=== PATIENT | male | born 1985 | race American Indian/Alaskan Native ===

== ENCOUNTER 2019-02-04 13:58 | Inpatient (IN) | payer BC ==
--- NOTE | 2019-02-04 14:15 | Event Note ---
ED Screening Note ED Screening Note: states he drinks approx 2 drinks of liquor per day has not been drinking much water states he had a binge weekend of alcohol states has some muscle cramping/soreness never had kidney problems in the past feels dehydration PMHx HTN states he was not on his medication 4 months states just started back taking it 3 days This initial assessment/diagnostic orders/clinical plan/treatment(s) is/are subject to change based on patients health status, clinical progression and re- assessment by fellow clinical providers in the ED. Further treatment and workup at subsequent clinical providers discretion. Patient/guardian urged not to elope from the ED as their condition may be serious if not clinically assessed and managed. Initial orders include: labs
[2019-02-04 15:22] LABS: Basophils # (Auto) 0.1 K/mm3 (0.0-0.1); Eosinophils # (Auto) 0.3 K/mm3 (0.0-0.4); Eosinophils % (Auto) 4.3 % (0.0-4.3); Hemoglobin 9.9 gm/dl (11.8-15.2); Lymphocytes # (Auto) 1.4 K/mm3 (1.2-5.4); Mean Corpuscular HGB Conc 34 % (32-34); Mean Corpuscular Volume 96 fl (84-94); Monocytes # (Auto) 0.4 K/mm3 (0.0-0.8); Monocytes % (Auto) 7.4 % (0.0-7.3); Platelet Count 306 K/mm3 (140-440); Red Blood Count 3.02 M/mm3 (3.65-5.03); Red Cell Distribution Width 14.8 % (13.2-15.2)
--- NOTE | 2019-02-04 15:31 | Emergency Department Report ---
HPI - General Chief Complaint: Recheck/Abnormal Lab/Rx Time Seen by Provider: 02/04/19 14:10 - HPI HPI: This is a 34-year-old male presents to the emergency department with a complaint of abnormal renal function labs that were found at his primary care office. He was sent in by Dr. Lane after he was found to have a creatinine greater than 8 and a GFR of 8. Patient complains of some fatigue but otherwise he has no other physical complaints. He is making a normal amount of urine. He says that he has been given a referral to follow up with Dr. ramirez. Patient is on a few different lab tests done and he was following up today regarding some blood work he had in the past 2 days. Patient has history of hypertension and admits to medication noncompliance in the past 4 months. He is an occasional tobacco smoker but denies any illicit drug use. He does drink alcohol regularly. ED Past Medical Hx - Past Medical History Previous Medical History?: Yes Hx Hypertension: Yes - Surgical History Past Surgical History?: Yes Additional Surgical History: giovany placed to right arm - Social History Smoking Status: Light Tobacco Smoker Substance Use Type: Alcohol - Medications Home Medications: Home Medications Medication Instructions Recorded Confirmed Last Taken Type Furosemide [Lasix] 20 mg PO DAILY 02/04/19 02/04/19 Unknown History Olmesartan (Nf) [Benicar (Nf)] 20 mg PO DAILY 02/04/19 02/04/19 Unknown History amLODIPine [Norvasc] 5 mg PO DAILY 02/04/19 02/04/19 Unknown History ED Review of Systems ROS: Stated complaint: DR SENT Other details as noted in HPI Comment: All other systems reviewed and negative Constitutional: denies: chills, fever Eyes: denies: eye pain, vision change ENT: denies: ear pain, throat pain Respiratory: denies: cough, shortness of breath Cardiovascular: denies: chest pain, palpitations Gastrointestinal: denies: abdominal pain, vomiting Genitourinary: denies: dysuria, discharge Musculoskeletal: denies: back pain, arthralgia Skin: denies: rash, lesions Neurological: denies: headache, weakness Physical Exam - Physical Exam Vital Signs: Vital Signs 02/04/19 14:13 Temperature 98.1 F Pulse Rate 108 H Respiratory 20 Rate Blood Pressure 164/112 O2 Sat by Pulse 100 Oximetry Physical Exam: GENERAL: The patient is well-developed well-nourished. HENT: Normocephalic. Atraumatic. Patient has moist mucous membranes. EYES: Extraocular motions are intact. NECK: Supple. Trachea is midline. CHEST/LUNGS: Clear to auscultation. There is no respiratory distress noted. HEART/CARDIOVASCULAR: Regular. There is no tachycardia. There is no murmur. ABDOMEN: Abdomen is soft, nontender. Patient has normal bowel sounds. There is no abdominal distention. SKIN: Skin is warm and dry. NEURO: The patient is awake, alert, and oriented. The patient is cooperative. The patient has no focal neurologic deficits. The patient has normal speech. MUSCULOSKELETAL: There is no tenderness or deformity. There is no limitation range of motion. There is no evidence of acute injury. ED Course Vital Signs 02/04/19 14:13 Temperature 98.1 F Pulse Rate 108 H Respiratory 20 Rate Blood Pressure 164/112 O2 Sat by Pulse 100 Oximetry - Consultations Consultation #1: 02/04/19 18:06 I spoke with the hacksaw inspector, Dr. Quiroga, who would like the patient admitted to the hospital for further evaluation and testing. He will consult on the patient. ED Medical Decision Making - Lab Data Result diagrams: 02/04/19 15:04 02/04/19 15:04 - Medical Decision Making This patient was sent in by his primary care physician for some acute renal failure. Otherwise the patient does not have any complaints of any discomfort or decreased urination. The blood work from the primary care office showed a creatinine of about 8.5 and a GFR of 8. The labs today show a creatinine of greater than 9. The rest of the blood work is mostly unremarkable. Nephrology has been contacted to consult. The patient will be admitted to the hospital for further evaluation and treatment and was accepted for admission by the hospitalist, Dr. Frank. - Differential Diagnosis secondary to HTN, malignancy, lupus nephritis Critical Care Time: No Critical care attestation.: If time is entered above; I have spent that time in minutes in the direct care of this critically ill patient, excluding procedure time. ED Disposition Clinical Impression: Uncontrolled hypertension Acute renal failure (ARF) Qualifiers: Acute renal failure type: unspecified Qualified Code(s): N17.9 - Acute kidney failure, unspecified Disposition: OP ADMIT IP TO THIS HOSP Is pt being admited?: Yes Condition: Fair Time of Disposition: 16:15
[2019-02-04 15:53] LABS: Albumin 3.8 g/dL (3.9-5); Calcium 9.1 mg/dL (8.4-10.2)
[2019-02-04] MEDS ORDERED: APRESOLINE IV ONE ×2 (16:16→18:46)
[2019-02-04 17:18] LABS: Bilirubin,Urine NEG (Negative); Blood,Urine NEG (Negative); Color,Urine Straw (Yellow); Mucus,Urine FEW /HPF; RBC,Urine < 1.0 /HPF (0.0-6.0); Urobilinogen,Urine < 2.0 mg/dL (<2.0); WBC,Urine < 1.0 /HPF (0.0-6.0)
[2019-02-04] MEDS ORDERED: NORVASC ONE (18:07)
[2019-02-04] MEDS: NORVASC PO SCH (18:12)
[2019-02-04] MEDS ORDERED: APRESOLINE ONE (18:50)
[2019-02-04] MEDS ORDERED: SODIUM CHLORIDE FLUSH SYRINGE 10 ML IV PRN ×2 (19:34→19:40)
[2019-02-04] MEDS ORDERED: TYLENOL PO PRN ×2 (19:34→19:40)
[2019-02-04] MEDS ORDERED: PERCOCET 5/325 PO PRN (19:34)
[2019-02-04] MEDS ORDERED: ZOFRAN IV PRN ×2 (19:34→19:40)
[2019-02-04] MEDS ORDERED: DILAUDID IV PRN (19:34)
[2019-02-04] MEDS ORDERED: APRESOLINE IV PRN (19:36)
[2019-02-04] MEDS ORDERED: REGLAN IV PRN (19:40)
[2019-02-04] MEDS ORDERED: PHENERGAN PR PRN (19:40)
--- NOTE | 2019-02-04 19:55 | History and Physical Report ---
History of Present Illness Date of examination: 02/04/19 Date of admission: 02/04/19 16:20 Chief complaint: Uncontrolled blood pressure Elevated creatinine--- sent by primary care for creatinine of 9.0 History of present illness: 34-year-old -[place] male with history of hypertension diagnosed a few years ago has been noncompliant with blood pressure medication. His primary care physician diagnosed him which elevated creatinine and elevated blood pressure. Sent him to emergency room for evaluation. Apparently his creatinine is about 9. Has been feeling weak for the last 2 weeks. Easily fatigued for the last 2 weeks. Patient was sent by Dr. Lane. Patient was referred to Dr Quiroga-audio narrator. Patient smokes 2-3 cigarettes a day. Alcohol on a regular basis. No fever or chills. Generalized weakness and fatigue for the last 2 weeks. Very noncompliant. Labs were sent along with the patient by the primary care physician. His hemoglobin was 9.4 and hematocrit was 28.1 creatinine is 8.92 Past Medical History Hypertension: Yes Surgical History Kiran placed to right arm secondary to right arm fracture Social History Smoking Status: Light Tobacco Smoker Substance Use Type: Alcohol--On regular basis Family history Htn Medications Home Medications: Home Medications Medication Instructions Recorded Confirmed Last Taken Type Furosemide [Lasix] 20 mg PO DAILY 02/04/19 02/04/19 Unknown History Olmesartan (Nf) [Benicar (Nf)] 20 mg PO DAILY 02/04/19 02/04/19 Unknown History amLODIPine [Norvasc] 5 mg PO DAILY 02/04/19 02/04/19 Unknown History Review of Systems ROS: Stated complaint: DR SENT Other details as noted in HPI Comment: All other systems reviewed and negative--generalized weakness Constitutional: denies: chills, fever Eyes: denies: eye pain, vision change ENT: denies: ear pain, throat pain Respiratory: denies: cough, shortness of breath Cardiovascular: denies: chest pain, palpitations Gastrointestinal: denies: abdominal pain, vomiting Genitourinary: denies: dysuria, discharge Musculoskeletal: denies: back pain, arthralgia Skin: denies: rash, lesions Neurological: denies: headache, weakness Medications and Allergies Allergies Allergy/AdvReac Type Severity Reaction Status Date / Time bee venom protein (honey bee) Allergy Swelling Verified 02/04/19 14:01 Home Medications Medication Instructions Recorded Confirmed Last Taken Type Furosemide [Lasix] 20 mg PO DAILY 02/04/19 02/04/19 Unknown History Olmesartan (Nf) [Benicar (Nf)] 20 mg PO DAILY 02/04/19 02/04/19 Unknown History amLODIPine [Norvasc] 5 mg PO DAILY 02/04/19 02/04/19 Unknown History Active Meds: Active Medications Acetaminophen (Tylenol) 650 mg PO Q4H PRN PRN Reason: Pain MILD(1-3)/Fever >100.5/BRAUN Acetaminophen (Tylenol) 650 mg PO Q4H PRN PRN Reason: Pain MILD(1-3)/Fever >100.5/BRAUN Amlodipine Besylate (Norvasc) 10 mg PO QDAY [facility] Last Admin: 02/04/19 18:12 Dose: 10 mg Documented by: Famotidine (Pepcid) 10 mg PO BID [facility] Heparin Sodium (Porcine) (Heparin) 5,000 unit SUB-Q Q12HR [facility] Hydralazine HCl (Apresoline) 10 mg IV Q3H PRN PRN Reason: Blood Pressure Hydromorphone HCl (Dilaudid) 0.5 mg IV Q3H PRN PRN Reason: Pain , Severe (7-10) Sodium Chloride (Nacl 0.45% 1000 Ml) 1,000 mls @ 50 mls/hr IV DIRECT BONY Labetalol HCl (Normodyne) 300 mg PO Q8H BON[facility] Metoclopramide HCl (Reglan) 10 mg IV Q6H PRN PRN Reason: Nausea And Vomiting Ondansetron HCl (Zofran) 4 mg IV Q8H PRN PRN Reason: Nausea And Vomiting Ondansetron HCl (Zofran) 4 mg IV Q8H PRN PRN Reason: Nausea And Vomiting Oxycodone/Acetaminophen (Percocet 5/325) 1 tab PO Q6H PRN PRN Reason: Pain, Moderate (4-6) Promethazine HCl (Phenergan) 25 mg MI Q6H PRN PRN Reason: N/V IF NPO AND NO IV ACCESS Sodium Chloride (Sodium Chloride Flush Syringe 10 Ml) 10 ml IV BID [facility] Sodium Chloride (Sodium Chloride Flush Syringe 10 Ml) 10 ml IV PRN PRN PRN Reason: LINE FLUSH Sodium Chloride (Sodium Chloride Flush Syringe 10 Ml) 10 ml IV BID BONY Sodium Chloride (Sodium Chloride Flush Syringe 10 Ml) 10 ml IV PRN PRN PRN Reason: LINE FLUSH Exam - Constitutional Vitals: Temp Pulse Resp BP Pulse Ox 98.4 F 109 H 18 166/99 100 02/04/19 19:41 02/04/19 19:41 02/04/19 19:41 02/04/19 19:41 02/04/19 19:41 General appearance: Present: no acute distress, well-nourished - EENT Eyes: Present: PERRL ENT: hearing intact, clear oral mucosa - Neck Neck: Present: supple, normal ROM - Respiratory Respiratory effort: normal Respiratory: bilateral: CTA - Cardiovascular Heart rate: 78 Rhythm: regular Heart Sounds: Present: S1 & S2. Absent: rub, click - Extremities Extremities: no ischemia, pulses intact, pulses symmetrical, No edema Peripheral Pulses: within normal limits - Abdominal General gastrointestinal: Present: soft, non-tender, non-distended, normal bowel sounds Male genitourinary: Present: normal - Rectal Rectal Exam: deferred - Integumentary Integumentary: Present: clear, warm, dry - Musculoskeletal Musculoskeletal: gait normal, strength equal bilaterally - Psychiatric Psychiatric: appropriate mood/affect, intact judgment & insight - Neurologic Neurologic: CNII-XII intact, moves all extremities - Allied Health Allied health notes reviewed: nursing, case management Results - Labs CBC & Chem 7: 02/04/19 15:04 02/04/19 15:04 Labs: Laboratory Last Values WBC 6.0 K/mm3 (4.5-11.0) 02/04/19 15:04 RBC 3.02 M/mm3 (3.65-5.03) L 02/04/19 15:04 Hgb 9.9 gm/dl (11.8-15.2) L 02/04/19 15:04 Hct 29.0 % (35.5-45.6) L 02/04/19 15:04 MCV 96 fl (84-94) H 02/04/19 15:04 MCH 33 pg (28-32) H 02/04/19 15:04 MCHC 34 % (32-34) 02/04/19 15:04 RDW 14.8 % (13.2-15.2) 02/04/19 15:04 Plt Count 306 K/mm3 (140-440) 02/04/19 15:04 Lymph % (Auto) 24.0 % (13.4-35.0) 02/04/19 15:04 [place] % (Auto) 7.4 % (0.0-7.3) H 02/04/19 15:04 Eos % (Auto) 4.3 % (0.0-4.3) 02/04/19 15:04 Baso % (Auto) 1.0 % (0.0-1.8) 02/04/19 15:04 Lymph # 1.4 K/mm3 (1.2-5.4) 02/04/19 15:04 [place] # 0.4 K/mm3 (0.0-0.8) 02/04/19 15:04 Eos # 0.3 K/mm3 (0.0-0.4) 02/04/19 15:04 Baso # 0.1 K/mm3 (0.0-0.1) 02/04/19 15:04 Seg Neutrophils % 63.3 % (40.0-70.0) 02/04/19 15:04 Seg Neutrophils # 3.8 K/mm3 (1.8-7.7) 02/04/19 15:04 Sodium 140 mmol/L (137-145) 02/04/19 15:04 Potassium 4.1 mmol/L (3.6-5.0) 02/04/19 15:04 Chloride 101.6 mmol/L (98-107) 02/04/19 15:04 Carbon Dioxide 23 mmol/L (22-30) 02/04/19 15:04 20 mmol/L 02/04/19 15:04 BUN 74 mg/dL (9-20) H 02/04/19 15:04 9.3 mg/dL (0.8-1.5) H 02/04/19 15:04 Estimated GFR 8 ml/min 02/04/19 15:04 8 % 02/04/19 15:04 Glucose 172 mg/dL (75-100) H 02/04/19 15:04 Calcium 9.1 mg/dL (8.4-10.2) 02/04/19 15:04 0.20 mg/dL (0.1-1.2) 02/04/19 15:04 AST 15 units/L (5-40) 02/04/19 15:04 ALT 19 units/L (7-56) 02/04/19 15:04 40 units/L (35-129) 02/04/19 15:04 100 units/L (55-170) 02/04/19 15:04 7.1 g/dL (6.3-8.2) 02/04/19 15:04 3.8 g/dL (3.9-5) L 02/04/19 15:04 1.2 % 02/04/19 15:04 Straw (Yellow) 02/04/19 16:43 Clear (Clear) 02/04/19 16:43 6.0 (5.0-7.0) 02/04/19 16:43 Ur Specific [place] 1.011 (1.003-1.030) 02/04/19 16:43 100 mg/dl mg/dL (Negative) 02/04/19 16:43 Neg mg/dL (Negative) 02/04/19 16:43 Neg mg/dL (Negative) 02/04/19 16:43 Neg (Negative) 02/04/19 16:43 Neg (Negative) 02/04/19 16:43 Neg (Negative) 02/04/19 16:43 < 2.0 mg/dL (<2.0) 02/04/19 16:43 Ur Leukocyte Esterase Neg (Negative) 02/04/19 16:43 < 1.0 /HPF (0.0-6.0) 02/04/19 16:43 < 1.0 /HPF (0.0-6.0) 02/04/19 16:43 Few /HPF 02/04/19 16:43 None seen (None Seen) 02/04/19 17:52 Short CBC 02/04/19 Range/Units 15:04 WBC 6.0 (4.5-11.0) K/mm3 Hgb 9.9 L (11.8-15.2) gm/dl Hct 29.0 L (35.5-45.6) % Plt Count 306 (140-440) K/mm3 BMP 02/04/19 15:04 Sodium 140 Potassium 4.1 Chloride 101.6 Carbon Dioxide 23 BUN 74 H Creatinine 9.3 H Glucose 172 H Calcium 9.1 Cardiac Enzymes 02/04/19 Range/Units 15:04 Total Creatine Kinase 100 (55-170) units/L Liver Function 02/04/19 Range/Units 15:04 Total Bilirubin 0.20 (0.1-1.2) mg/dL AST 15 (5-40) units/L ALT 19 (7-56) units/L Alkaline Phosphatase 40 (35-129) units/L Albumin 3.8 L (3.9-5) g/dL Urine 02/04/19 Range/Units 16:43 Urine Color Straw (Yellow) Urine pH 6.0 (5.0-7.0) Ur Specific [place] 1.011 (1.003-1.030) Urine Protein 100 mg/dl (Negative) mg/dL Urine Glucose (UA) Neg (Negative) mg/dL Assessment and Plan Advance Directives: Yes (full code) VTE prophylaxis?: Chemical Plan of care discussed with patient/family: Yes - Patient Problems (1) Hypertensive emergency Current Visit: Yes Status: Acute Plan to address problem: Patient started on labetalol 300 mg every 8 and amlodipine 10 mg daily Hydralazine 10 mg IV given 2 in the Emergency Room Patient. Hydralazine 10 mg IV every 3 hours when necessary Add hydralazine if necessary by by mouth (2) Acute kidney injury Current Visit: Yes Status: Acute Plan to address problem: Acute on chronic kidney disease IV fluids for now Acute tubular necrosis Nephrology consulted Possible renal biopsy Renal failure workup (3) Nicotine dependence Current Visit: Yes Status: Chronic Qualifiers: Nicotine product type: cigarettes Plan to address problem: Nicotine patch for now (4) Anemia Current Visit: Yes Status: Chronic Qualifiers: Anemia type: due to chronic kidney disease Chronic kidney disease stage: stage 5, not on chronic dialysis Qualified Code(s): N18.5 - Chronic kidney disease, stage 5; D63.1 - Anemia in chronic kidney disease Plan to address problem: Anemia secondary to chronic kidney disease Epogen if necessary (5) Malnutrition Current Visit: Yes Status: Chronic Qualifiers: Protein-calorie malnutrition severity: mild Plan to address problem: Dietitian consult requested (6) Hyperglycemia Current Visit: Yes Status: Acute Plan to address problem: Patient's blood glucose is 170 Not a known diabetic Will check hemoglobin A1c Insulin coverage for now We will decide if the patient needs hypoglycemic after A1c and serial glucose l evels are back (7) DVT prophylaxis Current Visit: Yes Status: Acute Plan to address problem: Heparin 5000 every 12hrs and GI prophylaxis
[2019-02-04] MEDS: NORMODYNE PO SCH (21:01)
--- NOTE | 2019-02-04 21:54 | Ultrasound Report ---
ULTRASOUND RENAL INDICATION: renal failure. COMPARISON: No relevant prior imaging study available. FINDINGS: RIGHT KIDNEY: Size: 8.7 cm. Echogenicity: Hyperechoic. Cortical thickness: Normal. Stones: There is a 6 mm shadowing focus in the medullary portion of the right kidney which could be a nonobstructing calyceal stone. Hydronephrosis: None. Cyst or mass: None. LEFT KIDNEY: Size: 7.4 cm. Echogenicity: Mildly hyperechoic. Cortical thickness: Normal. Stones: None. Hydronephrosis: None. Cyst or mass: None. Urinary Bladder: No significant abnormality. Free Fluid: None. Additional Findings: None. IMPRESSION 1. Kidneys are small, measurements as above. 2. Kidneys are mildly hyperechoic which could be seen in the setting of medical renal disease. 3. Achievable 6 mm nonobstructing right renal stone. No hydronephrosis.. Signer Name: Misael Madrigal MD Signed: 02/04/2019 9:50 PM Workstation Name: [id number]
[2019-02-04] MEDS ORDERED: SODIUM CHLORIDE FLUSH SYRINGE 10 ML IV SCH (22:00)
[2019-02-04] MEDS: SODIUM CHLORIDE FLUSH SYRINGE 10 ML IV SCH (22:00)
[2019-02-04] MEDS ORDERED: NORMODYNE PO SCH (22:00)
[2019-02-04] MEDS: PEPCID PO SCH (22:15)
[2019-02-04] MEDS: HEPARIN SUB-Q SCH (22:30)
[2019-02-04] MEDS: HumaLOG SUB-Q SCH (22:50)
[2019-02-05 00:02] LABS: Creatinine,Urine 129.8 mg/dL (0.1-20.0)
[2019-02-05] MEDS: NORMODYNE PO SCH ×3 (05:31→23:46)
[2019-02-05 05:33] LABS: Basophils # (Auto) 0.1 K/mm3 (0.0-0.1); Basophils % (Auto) 1.5 % (0.0-1.8); Eosinophils # (Auto) 0.2 K/mm3 (0.0-0.4); Eosinophils % (Auto) 3.7 % (0.0-4.3); Hematocrit 28.1 % (35.5-45.6); Hemoglobin 9.5 gm/dl (11.8-15.2); Lymphocytes # (Auto) 1.3 K/mm3 (1.2-5.4); Lymphocytes % (Auto) 29.4 % (13.4-35.0); Mean Corpuscular HGB Conc 34 % (32-34); Mean Corpuscular Volume 97 fl (84-94); Monocytes # (Auto) 0.4 K/mm3 (0.0-0.8); Monocytes % (Auto) 8.1 % (0.0-7.3); Platelet Count 290 K/mm3 (140-440)
[2019-02-05 05:42] LABS: Albumin 3.5 g/dL (3.9-5)
[2019-02-05] MEDS: HumaLOG SUB-Q SCH ×2 (09:23→13:25)
[2019-02-05] MEDS ORDERED: ATIVAN IV PRN ×3 (09:25)
--- NOTE | 2019-02-05 09:29 | Consultation ---
History of Present Illness - Reason for Consult Consult date: 02/05/19 chronic renal failure, end stage renal disease - History of Present Illness The patient is a 34 YO AAM with history significant for Hypertension (diagnosed about 15 yrs ago, stopped taking meds), Tobacco use, Alcohol abuse and Medical non-compliance who was sent from PCP's office for evaluation of abnormal labs results. Patient has lost follow up in 2-3 yrs and the recent labs showed creatinine of 9. Patient reports fatigue, decreased appetite, tiredness, nausea and generalized weakness for the past 3 weeks. Patient smokes a pack of cigarettes a day and half a bottle of vodka a day. His last drink was about a week ago. He denies NSAID use, kidney stone, recurrent UTIs, fever, chills, cough, vomiting, diarrhea, abd pain, hematuria, dysuria, cp, sob, leg swelling, dizziness or syncope. In the ED his BP was 164/112. Labs were significant for creatinine 9.9. I was asked by his PCP to evaluate the renal failure. Nephrology was consulted in the ER for further evaluation. Past History Past Medical History: hyperlipidemia, other (Tobacco use, alcohol abuse) Medications and Allergies Allergies Allergy/AdvReac Type Severity Reaction Status Date / Time bee venom protein (honey bee) Allergy Swelling Verified 02/04/19 14:01 Home Medications Medication Instructions Recorded Confirmed Last Taken Type Furosemide [Lasix] 20 mg PO DAILY 02/04/19 02/04/19 Unknown History Olmesartan (Nf) [Benicar (Nf)] 20 mg PO DAILY 02/04/19 02/04/19 Unknown History amLODIPine [Norvasc] 5 mg PO DAILY 02/04/19 02/04/19 Unknown History Active Meds: Active Medications Acetaminophen (Tylenol) 650 mg PO Q4H PRN PRN Reason: Pain MILD(1-3)/Fever >100.5/BRAUN Amlodipine Besylate (Norvasc) 10 mg PO QDAY [facility] Last Admin: 02/04/19 18:12 Dose: 10 mg Documented by: Famotidine (Pepcid) 10 mg PO DAILY [facility] Last Admin: 02/04/19 22:15 Dose: 10 mg Documented by: Heparin Sodium (Porcine) (Heparin) 5,000 unit SUB-Q Q12HR [facility] Last Admin: 02/04/19 22:30 Dose: Not Given Documented by: Hydralazine HCl (Apresoline) 10 mg IV Q3H PRN PRN Reason: Blood Pressure Sodium Chloride (Nacl 0.45% 1000 Ml) 1,000 mls @ 50 mls/hr IV DIRECT BONY Insulin Human Lispro (Humalog) 0 unit SUB-Q ACHS [facility]; Protocol Last Admin: 02/05/19 09:23 Dose: Not Given Documented by: Labetalol HCl (Normodyne) 300 mg PO Q8H [facility] Last Admin: 02/05/19 05:31 Dose: 300 mg Documented by: Lorazepam (Ativan) 2 mg IV Q1H PRN PRN Reason: CIWA-Ar 8-15 Lorazepam (Ativan) 4 mg IV Q1H PRN PRN Reason: CIWA-Ar 16-25 Lorazepam (Ativan) 4 mg IV Q15MIN PRN PRN Reason: CIWA-Ar >25 Ondansetron HCl (Zofran) 4 mg IV Q8H PRN PRN Reason: Nausea And Vomiting Sodium Chloride (Sodium Chloride Flush Syringe 10 Ml) 10 ml IV BID [facility] Last Admin: 02/04/19 22:00 Dose: 10 ml Documented by: Sodium Chloride (Sodium Chloride Flush Syringe 10 Ml) 10 ml IV PRN PRN PRN Reason: LINE FLUSH Review of Systems Constitutional: weight loss, anorexia, fatigue, weakness, no weight gain, no fever, no chills Cardiovascular: high blood pressure, no chest pain, no orthopnea, no edema, no syncope, no lightheadedness, no shortness of breath, no dyspnea on exertion, no leg edema Respiratory: no cough, no cough with sputum, no hemoptysis, no shortness of breath, no dyspnea on exertion Gastrointestinal: nausea, no abdominal pain, no vomiting, no diarrhea, no melena, no hematochezia Genitourinary Male: no dysuria, no hematuria Rectal: no bleeding Musculoskeletal: muscle weakness, no morning stiffness, no muscle cramps, no prior amputations Integumentary: no rash, no wounds, no jaundice Neurological: weakness, no paralysis, no seizures, no syncope, no convulsions, no aphasia, no change in speech, no change in mentation, no confusion, no memory loss Psychiatric: no memory loss Exam - Vital Signs Vital signs: Vital Signs Temp Pulse Resp BP Pulse Ox 98.1 F 108 H 20 164/112 100 02/04/19 14:13 02/04/19 14:13 02/04/19 14:13 02/04/19 14:13 02/04/19 14:13 - General Appearance General appearance: well-developed, well-nourished, appears stated age, other (no distress) EENT: ATNC, PERRL, mucous membranes moist, hearing intact, vision intact Neck: Present: neck supple, trachea midline Respiratory: Clear to Ascultation Heart: regular, S1S2, no murmurs Gastrointestinal: Present: normoactive bowel sounds. Absent: tenderness, distended Integumentary: no rash, warm and dry Neurologic: no focal deficit, no asterixis, alert and oriented x3 Musculoskeletal: Present: other (no edema) Psychiatric: cooperative Results - Lab Results 02/05/19 04:55 02/05/19 04:55 Most recent lab results Calcium 9.0 mg/dL (8.4-10.2) 02/05/19 04:55 Phosphorus 4.50 mg/dL (2.5-4.5) 02/05/19 04:55 129.8 mg/dL (0.1-20.0) H 02/04/19 18:02 73 mmol/L 02/04/19 18:02 - Image Kidney/bladder ultrasound: report reviewed Assessment and Plan 1. ESRD: Most likely CKD has progressed to ESRD. Patient presented with uremic symptoms. Renal US with small kidneys. Renal prognosis is poor. Avoid nephrotoxic agents. Meds dosage based on GFR. Patient in need of hemodialysis due to ESRD and uremic symptoms. Patient and her parents were explained the indications, benefits and risks involved in hemodialysis. Patient voiced understanding and gave consent to proceed with hemodialysis. Vascular consulted for placement of tunnel dialysis catheter. Hemodialysis: today. Kidney biopsy is not recommended due to high risk of bleeding. 2. FEN: Monitor lytes. 3. Anemia: Epogen. 4. HTN: BP is better. 5. Alcohol abuse. 6. Tobacco smoking. Discussed in detail and answered all questions.
[2019-02-05] MEDS ORDERED: NACL 0.9% 100 ML IV PRN (10:34)
--- NOTE | 2019-02-05 11:00 | Consultation ---
History of Present Illness - Reason for Consult Consult date: 02/05/19 End stage renal disease - History of Present Illness Patient with a history of fatigue who presents from his primary care physician's office to the ER with a creatinine of greater than 8 and a GFR of approximately 8. History of hypertension and medical noncompliance. The time of exam, the patient is somewhat drowsy but oriented. Past History Past Medical History: ESRD, hypertension Social history: no significant social history Family history: no significant family history Medications and Allergies Allergies Allergy/AdvReac Type Severity Reaction Status Date / Time bee venom protein (honey bee) Allergy Swelling Verified 02/04/19 14:01 Home Medications Medication Instructions Recorded Confirmed Last Taken Type Furosemide [Lasix] 20 mg PO DAILY 02/04/19 02/04/19 Unknown History Olmesartan (Nf) [Benicar (Nf)] 20 mg PO DAILY 02/04/19 02/04/19 Unknown History amLODIPine [Norvasc] 5 mg PO DAILY 02/04/19 02/04/19 Unknown History Active Meds: Active Medications Acetaminophen (Tylenol) 650 mg PO Q4H PRN PRN Reason: Pain MILD(1-3)/Fever >100.5/BRAUN Last Admin: 02/05/19 10:47 Dose: 650 mg Documented by: Amlodipine Besylate (Norvasc) 10 mg PO QDAY [facility] Last Admin: 02/04/19 18:12 Dose: 10 mg Documented by: Famotidine (Pepcid) 10 mg PO DAILY [facility] Last Admin: 02/04/19 22:15 Dose: 10 mg Documented by: Heparin Sodium (Porcine) (Heparin) 5,000 unit SUB-Q Q12HR [facility] Last Admin: 02/04/19 22:30 Dose: Not Given Documented by: Hydralazine HCl (Apresoline) 10 mg IV Q3H PRN PRN Reason: Blood Pressure Sodium Chloride (Nacl 0.45% 1000 Ml) 1,000 mls @ 50 mls/hr IV DIRECT BONY Sodium Chloride (Nacl 0.9%) 100 mls @ 999 mls/hr IV MIKE PRN PRN Reason: Hypotension Insulin Human Lispro (Humalog) 0 unit SUB-Q ACHS [facility]; Protocol Last Admin: 02/05/19 09:23 Dose: Not Given Documented by: Labetalol HCl (Normodyne) 300 mg PO Q8H [facility] Last Admin: 02/05/19 05:31 Dose: 300 mg Documented by: Lorazepam (Ativan) 2 mg IV Q1H PRN PRN Reason: CIWA-Ar 8-15 Lorazepam (Ativan) 4 mg IV Q1H PRN PRN Reason: CIWA-Ar 16-25 Lorazepam (Ativan) 4 mg IV Q15MIN PRN PRN Reason: CIWA-Ar >25 Ondansetron HCl (Zofran) 4 mg IV Q8H PRN PRN Reason: Nausea And Vomiting Sodium Chloride (Sodium Chloride Flush Syringe 10 Ml) 10 ml IV BID [facility] Last Admin: 02/04/19 22:00 Dose: 10 ml Documented by: Sodium Chloride (Sodium Chloride Flush Syringe 10 Ml) 10 ml IV PRN PRN PRN Reason: LINE FLUSH Review of Systems All systems: negative Exam - Constitutional Vitals: Temp Pulse Resp BP Pulse Ox 97.9 F 98 H 16 143/95 100 02/05/19 05:29 02/05/19 05:29 02/05/19 05:29 02/05/19 05:31 02/05/19 05:29 General appearance: Present: no acute distress - EENT Eyes: Present: EOM intact ENT: hearing intact - Neck Neck: Present: supple, normal ROM - Respiratory Respiratory effort: normal Respiratory: bilateral: CTA - Extremities Extremities: No edema, Full ROM - Abdominal General gastrointestinal: Present: deferred - Rectal Rectal Exam: deferred - Integumentary Integumentary: Present: clear, warm - Musculoskeletal Musculoskeletal: strength equal bilaterally - Psychiatric Psychiatric: appropriate mood/affect, cooperative Results - Labs CBC & Chem 7: 02/05/19 04:55 02/05/19 04:55 Labs: Abnormal lab results 02/04/19 02/04/19 02/04/19 Range/Units 15:04 15:04 18:02 RBC 3.02 L (3.65-5.03) M/mm3 Hgb 9.9 L (11.8-15.2) gm/dl Hct 29.0 L (35.5-45.6) % MCV 96 H (84-94) fl MCH 33 H (28-32) pg [place] % (Auto) 7.4 H (0.0-7.3) % BUN 74 H (9-20) mg/dL Creatinine 9.3 H (0.8-1.5) mg/dL Glucose 172 H (75-100) mg/dL POC Glucose (70-105) Albumin 3.8 L (3.9-5) g/dL PTH Intact (15-65) pg/mL Urine Creatinine 129.8 H (0.1-20.0) mg/dL 02/05/19 02/05/19 02/05/19 Range/Units 04:55 04:55 04:55 RBC 2.90 L (3.65-5.03) M/mm3 Hgb 9.5 L (11.8-15.2) gm/dl Hct 28.1 L (35.5-45.6) % MCV 97 H (84-94) fl MCH 33 H (28-32) pg [place] % (Auto) 8.1 H (0.0-7.3) % BUN 67 H (9-20) mg/dL Creatinine 9.2 H (0.8-1.5) mg/dL Glucose 113 H (75-100) mg/dL POC Glucose (70-105) Albumin 3.5 L (3.9-5) g/dL PTH Intact 132.5 H (15-65) pg/mL Urine Creatinine (0.1-20.0) mg/dL 02/05/19 02/05/19 Range/Units 08:05 08:38 RBC (3.65-5.03) M/mm3 Hgb (11.8-15.2) gm/dl Hct (35.5-45.6) % MCV (84-94) fl MCH (28-32) pg [place] % (Auto) (0.0-7.3) % BUN (9-20) mg/dL Creatinine (0.8-1.5) mg/dL Glucose (75-100) mg/dL POC Glucose 111 H 138 H (70-105) Albumin (3.9-5) g/dL PTH Intact (15-65) pg/mL Urine Creatinine (0.1-20.0) mg/dL Assessment and Plan Patient with end-stage renal disease needing to initiate hemodialysis. We'll schedule the patient for PermCath placement today.
[2019-02-05] MEDS: HEPARIN SUB-Q SCH ×2 (11:11→23:44)
[2019-02-05] MEDS: PEPCID PO SCH (11:11)
[2019-02-05] MEDS: NORVASC PO SCH (11:11)
[2019-02-05] MEDS ORDERED: NACL 0.9% 500 ML 500 ML ONE (11:18)
[2019-02-05] MEDS ORDERED: XYLOCAINE 2% INFILTRATI ONE (11:18)
[2019-02-05] MEDS ORDERED: HEPARIN/NS 5000 UNIT/500ML(CATH LAB) 500 ML IR ONE (11:18)
[2019-02-05] MEDS ORDERED: VERSED ONE (11:19)
[2019-02-05] MEDS ORDERED: SUBLIMAZE ONE (11:19)
[2019-02-05] MEDS: HEPARIN 10,000 UNITS/10 ML ONE ×3 (11:39→11:41)
--- NOTE | 2019-02-05 11:50 | Operative Report ---
Operative Report Operative Report: Exam: Ultrasound and fluoroscopic guided placement of tunneled hemodialysis catheter Clinical indication: Patient with end-stage renal disease requiring dialysis access Date: 02/05/2019 Procedure: Following an explanation of the risks, benefits and alternatives; written informed consent was obtained. The patient was brought to the angiographic suite and placed in supine position on the examination table. Initial ultrasound evaluation of the neck demonstrated a patent right internal jugular vein. The patient's right neck and chest wall were prepped and draped in the usual sterile fashion. 1% lidocaine was used for anesthesia. Under ultrasound guidance, the right internal jugular vein was cannulated with a 7 cm 18-gauge needle. A 0.035 guidewire was advanced into the IVC under fluoroscopy to document venous positioning and for anchoring. The needle was removed. An appropriate catheter exit site was chosen along the lateral right chest wall. 1% lidocaine was used for anesthesia at the catheter exit site and along the tunnel tract. A Bard 23 cm tunneled hemodialysis catheter was then tunneled anterior grade from the catheter exit site to the venotomy site. Following serial dilation over the guidewire under fluoroscopy, a 15 [place] peel-away sheath was placed over the guidewire under fluoroscopy and advanced centrally. The guidewire and trocar were removed. The catheter was placed through the peel-away sheath in the peel-away sheath removed. The catheter tip was positioned in the proximal right atrium. Both ports flushed and aspirated easily and were then locked with appropriate volumes of heparin. The ami was closed using 4-0 Vicryl suture and Dermabond. 4-0 Vicryl suture was also used to approximate the catheter exit site and additional Dermabond placed. Sterile dressings were then applied. The patient tolerated the procedure well. There were no immediate post procedure complications. Conscious sedation was performed under the guidance of radiologic nursing. Continuous cardiopulmonary monitoring was utilized. Impression: Ultrasound and fluoroscopic guided placement of tunneled hemodialysis catheter via the right internal jugular vein.
[2019-02-05] MEDS ORDERED: NACL 0.9 (PRIMING MACHINE ONLY DIALYSIS) MC ONE (12:29)
[2019-02-05 12:45] LABS: Hepatitis B Surface Antigen Non-Reactive (Negative); Hepatitis C Virus Antibody Non-Reactive (NonReactive)
--- NOTE | 2019-02-05 15:01 | Progress Note ---
Assessment and Plan Assessment and plan: Patient is a 34 yo man with a history of hypertension, tobacco and alcohol dependency who presents to [facility] ED for elevated Creatinine and confusion. Mother at bedside. Apparently patient tried to get and was unsteady on his feet. He is confused but speech is fluent. He drinks Vodka daily but confused on his last drink and how much he drinks. It appears he is in alcohol withdrawals. Acute renal failure, atn+vasomotor nephrology: hemodialysis to start Acute metabolic encephalopathy, uremia + alcohol withdrawal Malignant hypertension with emergency: Patient started on labetalol 300 mg every 8 and amlodipine 10 mg daily, Hydralazine 10 mg IV given 2 in the Emergency Room, give prn Hydralazine 10 mg IV every 3 hours when necessary Alcohol withdrawals: Ordered CIWA protocol, rucker counseling and Education done, mother at bedside thanked me Nicotine dependence: Nicotine patch for now Acute on chronic Anemia secondary to chronic kidney disease, Epogen if necessary: collow cbc closely Malnutrition: Dietitian consult requested Hyperglycemia,blood glucose is 172, Not a known diabetic, hemoglobin A1c normal, stop insulin and follow bmp/Bg closely DVT prophylaxis: Heparin 5000 every 12hrs and GI prophylaxis History Interval history: Patient was seen and examined. Follow-up on current diagnosis. No overnight events reported to me. Patient denies any chest pain, shortness breath, nausea/vomiting or severe headaches. Imaging, nursing note, chart, labs and old chart reviewed. Discussed with patient. Mother at bedside Hospitalist Physical - Physical exam Narrative exam: Gen: ill appearing NAD, Awake, Alert, Orientated x 3, but confused and confabulation HEENT: NCAT, EOMI, PERRL, OP Clear Neck: supple, no adenopathy, no thyromegaly, no JVD CVS/Heart: RRR, normal S1S2, pulses present bilaterally Chest/Lungs: CTA B, Symmetrical chest expansion, good air entry bilaterally GI/Abdomen: soft, NTND, good bowel sounds, no guarding or rebound /Bladder: no suprapubic tenderness, no CVA or paraspinal tenderness Extermity/Skin: no c/c/e, no obvious rash MSK: FROM x 4 Neuro: CN 2-12 grossly intact, no new focal deficits, fine tremor Psych: calm, speaks on tangent, for example, I asked him how when his last drink and he said 5 days ago on friday or but he knows today is friday. - Constitutional Vitals: Temp Pulse Resp BP Pulse Ox 98.6 F 86 19 130/86 100 02/05/19 12:15 02/05/19 13:15 02/05/19 12:15 02/05/19 13:15 02/05/19 05:29 General appearance: Present: no acute distress Results - Labs CBC & Chem 7: 02/05/19 04:55 02/05/19 04:55 Labs: Laboratory Last Values WBC 4.5 K/mm3 (4.5-11.0) 02/05/19 04:55 RBC 2.90 M/mm3 (3.65-5.03) L 02/05/19 04:55 Hgb 9.5 gm/dl (11.8-15.2) L 02/05/19 04:55 Hct 28.1 % (35.5-45.6) L 02/05/19 04:55 MCV 97 fl (84-94) H 02/05/19 04:55 MCH 33 pg (28-32) H 02/05/19 04:55 MCHC 34 % (32-34) 02/05/19 04:55 RDW 15.0 % (13.2-15.2) 02/05/19 04:55 Plt Count 290 K/mm3 (140-440) 02/05/19 04:55 Lymph % (Auto) 29.4 % (13.4-35.0) 02/05/19 04:55 [place] % (Auto) 8.1 % (0.0-7.3) H 02/05/19 04:55 Eos % (Auto) 3.7 % (0.0-4.3) 02/05/19 04:55 Baso % (Auto) 1.5 % (0.0-1.8) 02/05/19 04:55 Lymph # 1.3 K/mm3 (1.2-5.4) 02/05/19 04:55 [place] # 0.4 K/mm3 (0.0-0.8) 02/05/19 04:55 Eos # 0.2 K/mm3 (0.0-0.4) 02/05/19 04:55 Baso # 0.1 K/mm3 (0.0-0.1) 02/05/19 04:55 Seg Neutrophils % 57.3 % (40.0-70.0) 02/05/19 04:55 Seg Neutrophils # 2.6 K/mm3 (1.8-7.7) 02/05/19 04:55 Sodium 141 mmol/L (137-145) 02/05/19 04:55 Potassium 3.7 mmol/L (3.6-5.0) 02/05/19 04:55 Chloride 104.0 mmol/L (98-107) 02/05/19 04:55 Carbon Dioxide 24 mmol/L (22-30) 02/05/19 04:55 17 mmol/L 02/05/19 04:55 BUN 67 mg/dL (9-20) H 02/05/19 04:55 9.2 mg/dL (0.8-1.5) H 02/05/19 04:55 Estimated GFR 8 ml/min 02/05/19 04:55 7 % 02/05/19 04:55 Glucose 113 mg/dL (75-100) H 02/05/19 04:55 POC Glucose 138 (70-105) H 02/05/19 08:38 < 4.2 % (4-6) 02/04/19 Unknown Calcium 9.0 mg/dL (8.4-10.2) 02/05/19 04:55 Phosphorus 4.50 mg/dL (2.5-4.5) 02/05/19 04:55 0.20 mg/dL (0.1-1.2) 02/05/19 04:55 AST 11 units/L (5-40) 02/05/19 04:55 ALT 14 units/L (7-56) 02/05/19 04:55 37 units/L (35-129) 02/05/19 04:55 78 units/L (55-170) 02/05/19 04:55 6.6 g/dL (6.3-8.2) 02/05/19 04:55 3.5 g/dL (3.9-5) L 02/05/19 04:55 1.1 % 02/05/19 04:55 PTH Intact 132.5 pg/mL (15-65) H 02/05/19 04:55 Straw (Yellow) 02/04/19 16:43 Clear (Clear) 02/04/19 16:43 6.0 (5.0-7.0) 02/04/19 16:43 Ur Specific [place] 1.011 (1.003-1.030) 02/04/19 16:43 100 mg/dl mg/dL (Negative) 02/04/19 16:43 Neg mg/dL (Negative) 02/04/19 16:43 Neg mg/dL (Negative) 02/04/19 16:43 Neg (Negative) 02/04/19 16:43 Neg (Negative) 02/04/19 16:43 Neg (Negative) 02/04/19 16:43 < 2.0 mg/dL (<2.0) 02/04/19 16:43 Ur Leukocyte Esterase Neg (Negative) 02/04/19 16:43 < 1.0 /HPF (0.0-6.0) 02/04/19 16:43 < 1.0 /HPF (0.0-6.0) 02/04/19 16:43 Few /HPF 02/04/19 16:43 None seen (None Seen) 02/04/19 17:52 129.8 mg/dL (0.1-20.0) H 02/04/19 18:02 73 mmol/L 02/04/19 18:02 Hepatitis A IgM Ab Non-reactive (NonReactive) 02/05/19 04:55 Hep Bs Antigen Non-reactive (Negative) 02/05/19 04:55 Hep B Core IgM Ab Non-reactive (NonReactive) 02/05/19 04:55 Non-reactive (NonReactive) 02/05/19 04:55 Active Medications - Current Medications Current Medications: Generic Name Dose Route Start Last Admin Trade Name Freq PRN Reason Stop Dose Admin Acetaminophen 650 mg 02/04/19 19:40 02/05/19 10:47 Tylenol PO 650 mg Q4H PRN Administration Pain MILD(1-3)/Fever >100.5/BRAUN Amlodipine Besylate 10 mg 02/04/19 18:00 02/05/19 11:11 Norvasc PO Not Given QDAY BONY Famotidine 10 mg 02/04/19 22:00 02/05/19 11:11 Pepcid PO Not Given DAILY [facility] Heparin Sodium (Porcine) 5,000 unit 02/04/19 22:00 02/05/19 11:11 Heparin SUB-Q Not Given Q12HR [facility] Hydralazine HCl 10 mg 02/04/19 19:36 Apresoline IV Q3H PRN Blood Pressure Sodium Chloride 1,000 mls @ 50 mls/hr 02/04/19 18:00 Nacl 0.45% 1000 Ml IV DIRECT BONY Sodium Chloride 100 mls @ 999 mls/hr 02/05/19 10:34 Nacl 0.9% IV MIKE PRN Hypotension Insulin Human Lispro 0 unit 02/04/19 22:00 02/05/19 13:25 Humalog SUB-Q Not Given ACHS [facility] Protocol Labetalol HCl 300 mg 02/04/19 20:00 02/05/19 14:39 Normodyne PO Not Given Q8H [facility] Lorazepam 2 mg 02/05/19 09:25 Ativan IV Q1H PRN CIWA-Ar 8-15 Lorazepam 4 mg 02/05/19 09:25 Ativan IV Q1H PRN CIWA-Ar 16-25 Lorazepam 4 mg 02/05/19 09:25 Ativan IV Q15MIN PRN CIWA-Ar >25 Ondansetron HCl 4 mg 02/04/19 19:34 Zofran IV Q8H PRN Nausea And Vomiting Sodium Chloride 10 ml 02/04/19 22:00 02/04/19 22:00 Sodium Chloride Flush Syringe 10 Ml IV 10 ml BID BONY Administration Sodium Chloride 10 ml 02/04/19 19:34 Sodium Chloride Flush Syringe 10 Ml IV PRN PRN LINE FLUSH
[2019-02-05] MEDS: FOLVITE PO SCH (16:49)
[2019-02-05] MEDS: SODIUM CHLORIDE FLUSH SYRINGE 10 ML IV SCH ×2 (16:49→21:32)
[2019-02-05] MEDS: VITAMIN B-1 PO SCH (16:49)
[2019-02-05] MEDS: NACL 0.45% 1000 ML 1,000 ML IV SCH (21:28)
[2019-02-06 05:06] LABS: Calcium 8.7 mg/dL (8.4-10.2)
[2019-02-06] MEDS: NORMODYNE PO SCH ×3 (06:13→22:49)
[2019-02-06] MEDS ORDERED: NACL 0.9% 100 ML IV PRN (08:39)
[2019-02-06] MEDS: HEPARIN SUB-Q SCH ×2 (10:40→22:49)
[2019-02-06] MEDS: FOLVITE PO SCH ×2 (10:40→17:08)
[2019-02-06] MEDS: PEPCID PO SCH ×2 (10:41→17:11)
[2019-02-06] MEDS: NORVASC PO SCH ×2 (10:41→17:09)
[2019-02-06] MEDS: SODIUM CHLORIDE FLUSH SYRINGE 10 ML IV SCH ×2 (10:41→22:51)
--- NOTE | 2019-02-06 11:23 | Progress Note ---
Assessment and Plan 1. ESRD: Most likely CKD has progressed to ESRD. Patient presented with uremic symptoms. Renal US showed small kidneys. Renal prognosis is poor. Avoid nephrotoxic agents. Meds dosage based on GFR. Patient was started on hemodialysis due to ESRD and uremic symptoms. Hemodialysis: 02/05, today. 2. FEN: Monitor lytes. 3. Anemia: Epogen. 4. HTN: BP is better. 5. Alcohol abuse. 6. Tobacco smoking: Counseled. Discussed in detail and answered all questions. Subjective Date of service: 02/06/19 Interval history: Patient was seen and examined at the bedside, while on hemodialysis. Doing ok. Objective - Vital Signs Vital signs: Vital Signs - 12hr 02/05/19 02/05/19 02/06/19 23:43 23:46 04:43 Temperature 98.3 F 98.5 F Pulse Rate 98 H 97 H 92 H Respiratory 18 20 Rate Blood Pressure 141/87 141/87 130/81 O2 Sat by Pulse 98 98 Oximetry 02/06/19 02/06/19 02/06/19 06:13 10:30 10:45 Temperature 98.2 F Pulse Rate 92 H 94 H 87 Respiratory 18 Rate Blood Pressure 130/81 135/86 163/90 O2 Sat by Pulse Oximetry 02/06/19 11:00 Temperature Pulse Rate 90 Respiratory Rate Blood Pressure 148/91 O2 Sat by Pulse Oximetry - General Appearance General appearance: well-developed, well-nourished, appears stated age, other (no distress, R IJ tunnel catheter) EENT: ATNC, PERRL, mucous membranes moist, hearing intact, vision intact Neck: supple Respiratory: Present: Clear to Ascultation Cardiology: regular, S1S2, no murmurs Gastrointestinal: normoactive bowel sounds, no tenderness, no distended Integumentary: no rash, warm and dry Neurologic: no focal deficit, no asterixis, alert and oriented x3 Musculoskeletal: other (no edema) - Lab 02/05/19 04:55 02/06/19 03:42 Most recent lab results Calcium 8.7 mg/dL (8.4-10.2) 02/06/19 03:42 Phosphorus 4.50 mg/dL (2.5-4.5) 02/05/19 04:55 129.8 mg/dL (0.1-20.0) H 02/04/19 18:02 73 mmol/L 02/04/19 18:02 Medications & Allergies - Medications Allergies/Adverse Reactions: Allergies bee venom protein (honey bee) Allergy (Verified 02/04/19 14:01) Swelling Home Medications: Home Medications Medication Instructions Recorded Confirmed Last Taken Type Furosemide [Lasix] 20 mg PO DAILY 02/04/19 02/04/19 Unknown History Olmesartan (Nf) [Benicar (Nf)] 20 mg PO DAILY 02/04/19 02/04/19 Unknown History amLODIPine [Norvasc] 5 mg PO DAILY 02/04/19 02/04/19 Unknown History Active Medications: Generic Name Dose Route Start Last Admin Trade Name Freq PRN Reason Stop Dose Admin Acetaminophen 650 mg 02/04/19 19:40 02/05/19 10:47 Tylenol PO 650 mg Q4H PRN Administration Pain MILD(1-3)/Fever >100.5/BRAUN Amlodipine Besylate 10 mg 02/04/19 18:00 02/06/19 10:41 Norvasc PO Not Given QDAY [facility] Epoetin Justin 10,000 unit 02/06/19 08:39 Procrit SUB-Q MIKE PRN hemodialysis Famotidine 10 mg 02/04/19 22:00 02/06/19 10:41 Pepcid PO Not Given DAILY [facility] Folic Acid 1 mg 02/05/19 16:00 02/06/19 10:40 Folvite PO Not Given QDAY [facility] Heparin Sodium (Porcine) 5,000 unit 02/04/19 22:00 02/06/19 10:40 Heparin SUB-Q Not Given Q12HR [facility] Hydralazine HCl 10 mg 02/04/19 19:36 Apresoline IV Q3H PRN Blood Pressure Sodium Chloride 1,000 mls @ 50 mls/hr 02/04/19 18:00 02/05/19 21:28 Nacl 0.45% 1000 Ml IV 50 mls/hr DIRECT BON[facility] Administration Sodium Chloride 100 mls @ 999 mls/hr 02/05/19 10:34 Nacl 0.9% IV MIKE PRN Hypotension Sodium Chloride 100 mls @ 999 mls/hr 02/06/19 08:39 Nacl 0.9% IV MIKE PRN Hypotension Labetalol HCl 300 mg 02/04/19 20:00 07/20/19 06:13 Normodyne PO 300 mg Q8H [facility] Administration Lorazepam 2 mg 02/05/19 09:25 Ativan IV Q1H PRN CIWA-Ar 8-15 Lorazepam 4 mg 02/05/19 09:25 Ativan IV Q1H PRN CIWA-Ar 16-25 Lorazepam 4 mg 02/05/19 09:25 Ativan IV Q15MIN PRN CIWA-Ar >25 Ondansetron HCl 4 mg 02/04/19 19:34 Zofran IV Q8H PRN Nausea And Vomiting Sodium Chloride 10 ml 02/04/19 22:00 02/06/19 10:41 Sodium Chloride Flush Syringe 10 Ml IV Not Given BID BONY Sodium Chloride 10 ml 02/04/19 19:34 Sodium Chloride Flush Syringe 10 Ml IV PRN PRN LINE FLUSH Thiamine HCl 100 mg 02/05/19 16:00 02/05/19 16:49 Vitamin B-1 PO 100 mg QDAY [facility] Administration
[2019-02-06] MEDS ORDERED: NACL 0.9 (PRIMING MACHINE ONLY DIALYSIS) MC ONE (13:17)
[2019-02-06] MEDS: PROCRIT SUB-Q PRN (13:35)
--- NOTE | 2019-02-06 16:24 | Progress Note ---
Assessment and Plan Assessment and plan: Patient is a 34 yo man with a history of hypertension, tobacco and alcohol dependency who presents to [facility] ED for elevated Creatinine and confusion. Mother at bedside. Apparently patient tried to get and was unsteady on his feet. He is confused but speech is fluent. He drinks Vodka daily but confused on his last drink and how much he drinks. It appears he is in alcohol withdrawals. Acute renal failure, atn+vasomotor nephrology: hemodialysis started 02/05/19 then again 02/06/19 Acute metabolic encephalopathy, uremia + alcohol withdrawal Malignant hypertension with emergency: Patient started on labetalol 300 mg every 8 and amlodipine 10 mg daily, Hydralazine 10 mg IV given 2 in the Emergency Room, give prn Hydralazine 10 mg IV every 3 hours when necessary Alcohol withdrawals: Ordered CIWA protocol, counseling and Education done, mother at bedside thanked me Nicotine dependence: Nicotine patch for now Acute on chronic Anemia secondary to chronic kidney disease, Epogen if necessary: collow cbc closely Malnutrition: Dietitian consult requested Hyperglycemia,blood glucose is 172, Not a known diabetic, hemoglobin A1c normal, stop insulin and follow bmp/Bg closely DVT prophylaxis: Heparin 5000 every 12hrs and GI prophylaxis History Interval history: Patient was seen and examined. Follow-up on current diagnosis. No overnight events reported to me. Patient denies any chest pain, shortness breath, nausea/vomiting or severe headaches. Imaging, nursing note, chart, labs and old chart reviewed. Discussed with patient. Mother at bedside Hospitalist Physical - Physical exam Narrative exam: Gen: ill appearing NAD, Awake, Alert, Orientated x 3, but confused and confabulation HEENT: NCAT, EOMI, PERRL, OP Clear Neck: supple, no adenopathy, no thyromegaly, no JVD CVS/Heart: RRR, normal S1S2, pulses present bilaterally Chest/Lungs: CTA B, Symmetrical chest expansion, good air entry bilaterally GI/Abdomen: soft, NTND, good bowel sounds, no guarding or rebound /Bladder: no suprapubic tenderness, no CVA or paraspinal tenderness Extermity/Skin: no c/c/e, no obvious rash MSK: FROM x 4 Neuro: CN 2-12 grossly intact, no new focal deficits, fine tremor Psych: calm, speaks on tangent, for example, I asked him how when his last drink and he said 5 days ago on friday or but he knows today is friday. - Constitutional Vitals: Temp Pulse Resp BP Pulse Ox 98.5 F 91 H 18 142/91 98 02/06/19 13:15 02/06/19 13:15 02/06/19 13:15 02/06/19 13:15 02/06/19 04:43 General appearance: Present: no acute distress Results - Labs CBC & Chem 7: 02/05/19 04:55 02/06/19 03:42 Labs: Laboratory Last Values WBC 4.5 K/mm3 (4.5-11.0) 02/05/19 04:55 RBC 2.90 M/mm3 (3.65-5.03) L 02/05/19 04:55 Hgb 9.5 gm/dl (11.8-15.2) L 02/05/19 04:55 Hct 28.1 % (35.5-45.6) L 02/05/19 04:55 MCV 97 fl (84-94) H 02/05/19 04:55 MCH 33 pg (28-32) H 02/05/19 04:55 MCHC 34 % (32-34) 02/05/19 04:55 RDW 15.0 % (13.2-15.2) 02/05/19 04:55 Plt Count 290 K/mm3 (140-440) 02/05/19 04:55 Lymph % (Auto) 29.4 % (13.4-35.0) 02/05/19 04:55 [place] % (Auto) 8.1 % (0.0-7.3) H 02/05/19 04:55 Eos % (Auto) 3.7 % (0.0-4.3) 02/05/19 04:55 Baso % (Auto) 1.5 % (0.0-1.8) 02/05/19 04:55 Lymph # 1.3 K/mm3 (1.2-5.4) 02/05/19 04:55 [place] # 0.4 K/mm3 (0.0-0.8) 02/05/19 04:55 Eos # 0.2 K/mm3 (0.0-0.4) 02/05/19 04:55 Baso # 0.1 K/mm3 (0.0-0.1) 02/05/19 04:55 Seg Neutrophils % 57.3 % (40.0-70.0) 02/05/19 04:55 Seg Neutrophils # 2.6 K/mm3 (1.8-7.7) 02/05/19 04:55 Sodium 140 mmol/L (137-145) 02/06/19 03:42 Potassium 3.5 mmol/L (3.6-5.0) L 02/06/19 03:42 Chloride 102.4 mmol/L (98-107) 02/06/19 03:42 Carbon Dioxide 25 mmol/L (22-30) 02/06/19 03:42 16 mmol/L 02/06/19 03:42 BUN 40 mg/dL (9-20) H 02/06/19 03:42 7.9 mg/dL (0.8-1.5) H 02/06/19 03:42 Estimated GFR 10 ml/min 02/06/19 03:42 5 % 02/06/19 03:42 Glucose 108 mg/dL (75-100) H 02/06/19 03:42 POC Glucose 158 (70-105) H 02/05/19 18:41 < 4.2 % (4-6) 02/04/19 Unknown Calcium 8.7 mg/dL (8.4-10.2) 02/06/19 03:42 Phosphorus 4.50 mg/dL (2.5-4.5) 02/05/19 04:55 0.20 mg/dL (0.1-1.2) 02/05/19 04:55 AST 11 units/L (5-40) 02/05/19 04:55 ALT 14 units/L (7-56) 02/05/19 04:55 37 units/L (35-129) 02/05/19 04:55 78 units/L (55-170) 02/05/19 04:55 6.6 g/dL (6.3-8.2) 02/05/19 04:55 3.5 g/dL (3.9-5) L 02/05/19 04:55 1.1 % 02/05/19 04:55 PTH Intact 132.5 pg/mL (15-65) H 02/05/19 04:55 Straw (Yellow) 02/04/19 16:43 Clear (Clear) 02/04/19 16:43 6.0 (5.0-7.0) 02/04/19 16:43 Ur Specific [place] 1.011 (1.003-1.030) 02/04/19 16:43 100 mg/dl mg/dL (Negative) 02/04/19 16:43 Neg mg/dL (Negative) 02/04/19 16:43 Neg mg/dL (Negative) 02/04/19 16:43 Neg (Negative) 02/04/19 16:43 Neg (Negative) 02/04/19 16:43 Neg (Negative) 02/04/19 16:43 < 2.0 mg/dL (<2.0) 02/04/19 16:43 Ur Leukocyte Esterase Neg (Negative) 02/04/19 16:43 < 1.0 /HPF (0.0-6.0) 02/04/19 16:43 < 1.0 /HPF (0.0-6.0) 02/04/19 16:43 Few /HPF 02/04/19 16:43 None seen (None Seen) 02/04/19 17:52 129.8 mg/dL (0.1-20.0) H 02/04/19 18:02 73 mmol/L 02/04/19 18:02 Hepatitis A IgM Ab Non-reactive (NonReactive) 02/05/19 04:55 Hep Bs Antigen Non-reactive (Negative) 02/05/19 04:55 Hep B Core IgM Ab Non-reactive (NonReactive) 02/05/19 04:55 Non-reactive (NonReactive) 02/05/19 04:55 Active Medications - Current Medications Current Medications: Generic Name Dose Route Start Last Admin Trade Name Freq PRN Reason Stop Dose Admin Acetaminophen 650 mg 02/04/19 19:40 02/05/19 10:47 Tylenol PO 650 mg Q4H PRN Administration Pain MILD(1-3)/Fever >100.5/BRAUN Amlodipine Besylate 10 mg 02/04/19 18:00 02/06/19 10:41 Norvasc PO Not Given QDAY BONY Epoetin Justin 10,000 unit 02/06/19 08:39 02/06/19 13:35 Procrit SUB-Q 10,000 unit MIKE PRN Administration hemodialysis Famotidine 10 mg 02/04/19 22:00 02/06/19 10:41 Pepcid PO Not Given DAILY BONY Folic Acid 1 mg 02/05/19 16:00 02/06/19 10:40 Folvite PO Not Given QDAY BONY Heparin Sodium (Porcine) 5,000 unit 02/04/19 22:00 02/06/19 10:40 Heparin SUB-Q Not Given Q12HR BONY Hydralazine HCl 10 mg 02/04/19 19:36 Apresoline IV Q3H PRN Blood Pressure Sodium Chloride 1,000 mls @ 50 mls/hr 02/04/19 18:00 02/05/19 21:28 Nacl 0.45% 1000 Ml IV 50 mls/hr DIRECT BONY Administration Sodium Chloride 100 mls @ 999 mls/hr 02/05/19 10:34 Nacl 0.9% IV MIKE PRN Hypotension Sodium Chloride 100 mls @ 999 mls/hr 02/06/19 08:39 Nacl 0.9% IV MIKE PRN Hypotension Labetalol HCl 300 mg 02/04/19 20:00 02/06/19 06:13 Normodyne PO 300 mg Q8H BONY Administration Lorazepam 2 mg 02/05/19 09:25 Ativan IV Q1H PRN CIWA-Ar 8-15 Lorazepam 4 mg 02/05/19 09:25 Ativan IV Q1H PRN CIWA-Ar 16-25 Lorazepam 4 mg 02/05/19 09:25 Ativan IV Q15MIN PRN CIWA-Ar >25 Ondansetron HCl 4 mg 02/04/19 19:34 Zofran IV Q8H PRN Nausea And Vomiting Sodium Chloride 10 ml 02/04/19 22:00 02/06/19 10:41 Sodium Chloride Flush Syringe 10 Ml IV Not Given BID BONY Sodium Chloride 10 ml 02/04/19 19:34 Sodium Chloride Flush Syringe 10 Ml IV PRN PRN LINE FLUSH Thiamine HCl 100 mg 02/05/19 16:00 02/05/19 16:49 Vitamin B-1 PO 100 mg QDAY BONY Administration
[2019-02-06] MEDS: VITAMIN B-1 PO SCH (17:17)
[2019-02-07] MEDS: NACL 0.45% 1000 ML 1,000 ML IV SCH ×2 (05:36→23:08)
[2019-02-07] MEDS: NORMODYNE PO SCH ×2 (05:37→22:56)
--- NOTE | 2019-02-07 10:23 | Progress Note ---
Assessment and Plan 1. ESRD: Most likely CKD has progressed to ESRD. Patient presented with uremic symptoms. Renal US showed small kidneys. Renal prognosis is poor. Avoid nephrotoxic agents. Meds dosage based on GFR. Patient was started on hemodialysis due to ESRD and uremic symptoms. Hemodialysis: 02/05, 02/06. 2. FEN: Monitor lytes. 3. Anemia: Epogen. 4. HTN: BP is better. 5. Alcohol abuse. 6. Tobacco smoking: Counseled. Need outpatient HD chair. Discussed in detail and answered all questions. Subjective Date of service: 02/07/19 Interval history: Patient was seen and examined at the bedside. Doing ok. Girlfriend at the bedside. Objective - Vital Signs Vital signs: Vital Signs - 12hr 02/06/19 02/06/19 02/07/19 22:47 22:49 05:19 Temperature 98.8 F 98.4 F Pulse Rate 95 H 93 H Respiratory 20 20 Rate Blood Pressure 119/78 119/78 143/94 O2 Sat by Pulse 99 99 Oximetry 02/07/19 05:37 Temperature Pulse Rate Respiratory Rate Blood Pressure 143/94 O2 Sat by Pulse Oximetry - General Appearance General appearance: well-developed, well-nourished, appears stated age, other (no distress, R IJ tunnel catheter) EENT: ATNC, PERRL, mucous membranes moist, hearing intact, vision intact Neck: no JVD, supple Respiratory: Present: Clear to Ascultation Cardiology: regular, S1S2, no murmurs Gastrointestinal: normoactive bowel sounds, no tenderness, no distended Integumentary: no rash, warm and dry Neurologic: no focal deficit, no asterixis, alert and oriented x3 Musculoskeletal: other (no edema) Psychiatric: cooperative - Lab 02/05/19 04:55 02/06/19 03:42 Most recent lab results Calcium 8.7 mg/dL (8.4-10.2) 02/06/19 03:42 Phosphorus 4.50 mg/dL (2.5-4.5) 02/05/19 04:55 129.8 mg/dL (0.1-20.0) H 02/04/19 18:02 73 mmol/L 02/04/19 18:02 Medications & Allergies - Medications Allergies/Adverse Reactions: Allergies bee venom protein (honey bee) Allergy (Verified 02/04/19 14:01) Swelling Home Medications: Home Medications Medication Instructions Recorded Confirmed Last Taken Type Furosemide [Lasix] 20 mg PO DAILY 02/04/19 02/04/19 Unknown History Olmesartan (Nf) [Benicar (Nf)] 20 mg PO DAILY 02/04/19 02/04/19 Unknown History amLODIPine [Norvasc] 5 mg PO DAILY 02/04/19 02/04/19 Unknown History Active Medications: Generic Name Dose Route Start Last Admin Trade Name Freq PRN Reason Stop Dose Admin Acetaminophen 650 mg 02/04/19 19:40 02/05/19 10:47 Tylenol PO 650 mg Q4H PRN Administration Pain MILD(1-3)/Fever >100.5/BRAUN Amlodipine Besylate 10 mg 02/04/19 18:00 02/06/19 17:09 Norvasc PO 10 mg QDAY BONY Administration Epoetin Justin 10,000 unit 02/06/19 08:39 02/06/19 13:35 Procrit SUB-Q 10,000 unit MIKE PRN Administration hemodialysis Famotidine 10 mg 02/04/19 22:00 02/06/19 17:11 Pepcid PO 10 mg DAILY BONY Administration Folic Acid 1 mg 02/05/19 16:00 02/06/19 17:08 Folvite PO 1 mg QDAY BONY Administration Heparin Sodium (Porcine) 5,000 unit 02/04/19 22:00 02/06/19 22:49 Heparin SUB-Q 5,000 unit Q12HR BONY Administration Hydralazine HCl 10 mg 02/04/19 19:36 Apresoline IV Q3H PRN Blood Pressure Sodium Chloride 1,000 mls @ 50 mls/hr 02/04/19 18:00 02/07/19 05:36 Nacl 0.45% 1000 Ml IV 50 mls/hr DIRECT BONY Administration Sodium Chloride 100 mls @ 999 mls/hr 02/05/19 10:34 Nacl 0.9% IV MIKE PRN Hypotension Sodium Chloride 100 mls @ 999 mls/hr 02/06/19 08:39 Nacl 0.9% IV MIKE PRN Hypotension Labetalol HCl 300 mg 02/04/19 20:00 02/07/19 05:37 Normodyne PO 300 mg Q8H BONY Administration Lorazepam 2 mg 02/05/19 09:25 Ativan IV Q1H PRN CIWA-Ar 8-15 Lorazepam 4 mg 02/05/19 09:25 Ativan IV Q1H PRN CIWA-Ar 16-25 Lorazepam 4 mg 02/05/19 09:25 Ativan IV Q15MIN PRN CIWA-Ar >25 Ondansetron HCl 4 mg 02/04/19 19:34 Zofran IV Q8H PRN Nausea And Vomiting Sodium Chloride 10 ml 02/04/19 22:00 02/06/19 22:51 Sodium Chloride Flush Syringe 10 Ml IV 10 ml BID BONY Administration Sodium Chloride 10 ml 02/04/19 19:34 Sodium Chloride Flush Syringe 10 Ml IV PRN PRN LINE FLUSH Thiamine HCl 100 mg 02/05/19 16:00 02/06/19 17:17 Vitamin B-1 PO 100 mg QDAY BONY Administration
[2019-02-07] MEDS: HEPARIN SUB-Q SCH ×2 (10:31→22:57)
[2019-02-07] MEDS: PEPCID PO SCH (10:32)
[2019-02-07] MEDS: VITAMIN B-1 PO SCH (10:32)
[2019-02-07] MEDS: FOLVITE PO SCH (10:32)
[2019-02-07] MEDS: NORVASC PO SCH (10:32)
[2019-02-07] MEDS: SODIUM CHLORIDE FLUSH SYRINGE 10 ML IV SCH ×2 (10:32→22:58)
--- NOTE | 2019-02-07 14:18 | Progress Note ---
Assessment and Plan Assessment and plan: Patient is a 34 yo man with a history of hypertension, tobacco and alcohol dependency who presents to [facility] ED for elevated Creatinine and confusion. Mother at bedside. Apparently patient tried to get and was unsteady on his feet. He is confused but speech is fluent. He drinks Vodka daily but confused on his last drink and how much he drinks. It appears he is in alcohol withdrawals. Acute renal failure, atn+vasomotor nephrology: hemodialysis started 02/05/19 then again 02/06/19 Acute metabolic encephalopathy, uremia + alcohol withdrawal Malignant hypertension with emergency: Patient started on labetalol 300 mg every 8 and amlodipine 10 mg daily, Hydralazine 10 mg IV given 2 in the Emergency Room, give prn Hydralazine 10 mg IV every 3 hours when necessary Alcohol withdrawals: Ordered CIWA protocol, counseling and Education done, mother at bedside thanked me Nicotine dependence: Nicotine patch for now Acute on chronic Anemia secondary to chronic kidney disease, Epogen if necessary: collow cbc closely Malnutrition: Dietitian consult requested Hyperglycemia,blood glucose is 172, Not a known diabetic, hemoglobin A1c normal, stop insulin and follow bmp/Bg closely DVT prophylaxis: Heparin 5000 every 12hrs and GI prophylaxis Disposition: continue inpatient care, await outpatient hemodialysis setup with chair time then d/c home. the etoh symptoms are getting better. History Interval history: Patient was seen and examined. Follow-up on current diagnosis of ARF. No overnight events reported to me. Patient denies any chest pain, shortness breath, nausea/vomiting or severe headaches. Imaging, nursing note, chart, labs and old chart reviewed. Discussed with patient. Hospitalist Physical - Physical exam Narrative exam: Gen: ill appearing NAD, Awake, Alert, Orientated x 3, but confused and confabulation HEENT: NCAT, EOMI, PERRL, OP Clear Neck: supple, no adenopathy, no thyromegaly, no JVD CVS/Heart: RRR, normal S1S2, pulses present bilaterally Chest/Lungs: CTA B, Symmetrical chest expansion, good air entry bilaterally GI/Abdomen: soft, NTND, good bowel sounds, no guarding or rebound /Bladder: no suprapubic tenderness, no CVA or paraspinal tenderness Extermity/Skin: no c/c/e, no obvious rash MSK: FROM x 4 Neuro: CN 2-12 grossly intact, no new focal deficits, fine tremor Psych: calm, speaks on tangent, for example, I asked him how when his last drink and he said 5 days ago on friday or but he knows today is friday. - Constitutional Vitals: Temp Pulse Resp BP Pulse Ox 98.2 F 90 20 127/91 99 02/07/19 11:28 02/07/19 11:28 02/07/19 11:28 02/07/19 11:28 02/07/19 11:28 General appearance: Present: no acute distress Results - Labs CBC & Chem 7: 02/05/19 04:55 02/06/19 03:42 Labs: Laboratory Last Values WBC 4.5 K/mm3 (4.5-11.0) 02/05/19 04:55 RBC 2.90 M/mm3 (3.65-5.03) L 02/05/19 04:55 Hgb 9.5 gm/dl (11.8-15.2) L 02/05/19 04:55 Hct 28.1 % (35.5-45.6) L 02/05/19 04:55 MCV 97 fl (84-94) H 02/05/19 04:55 MCH 33 pg (28-32) H 02/05/19 04:55 MCHC 34 % (32-34) 02/05/19 04:55 RDW 15.0 % (13.2-15.2) 02/05/19 04:55 Plt Count 290 K/mm3 (140-440) 02/05/19 04:55 Lymph % (Auto) 29.4 % (13.4-35.0) 02/05/19 04:55 [place] % (Auto) 8.1 % (0.0-7.3) H 02/05/19 04:55 Eos % (Auto) 3.7 % (0.0-4.3) 02/05/19 04:55 Baso % (Auto) 1.5 % (0.0-1.8) 02/05/19 04:55 Lymph # 1.3 K/mm3 (1.2-5.4) 02/05/19 04:55 [place] # 0.4 K/mm3 (0.0-0.8) 02/05/19 04:55 Eos # 0.2 K/mm3 (0.0-0.4) 02/05/19 04:55 Baso # 0.1 K/mm3 (0.0-0.1) 02/05/19 04:55 Seg Neutrophils % 57.3 % (40.0-70.0) 02/05/19 04:55 Seg Neutrophils # 2.6 K/mm3 (1.8-7.7) 02/05/19 04:55 Sodium 140 mmol/L (137-145) 02/06/19 03:42 Potassium 3.5 mmol/L (3.6-5.0) L 02/06/19 03:42 Chloride 102.4 mmol/L (98-107) 02/06/19 03:42 Carbon Dioxide 25 mmol/L (22-30) 02/06/19 03:42 16 mmol/L 02/06/19 03:42 BUN 40 mg/dL (9-20) H 02/06/19 03:42 7.9 mg/dL (0.8-1.5) H 02/06/19 03:42 Estimated GFR 10 ml/min 02/06/19 03:42 5 % 02/06/19 03:42 Glucose 108 mg/dL (75-100) H 02/06/19 03:42 POC Glucose 158 (70-105) H 02/05/19 18:41 < 4.2 % (4-6) 02/04/19 Unknown Calcium 8.7 mg/dL (8.4-10.2) 02/06/19 03:42 Phosphorus 4.50 mg/dL (2.5-4.5) 02/05/19 04:55 0.20 mg/dL (0.1-1.2) 02/05/19 04:55 AST 11 units/L (5-40) 02/05/19 04:55 ALT 14 units/L (7-56) 02/05/19 04:55 37 units/L (35-129) 02/05/19 04:55 78 units/L (55-170) 02/05/19 04:55 6.6 g/dL (6.3-8.2) 02/05/19 04:55 3.5 g/dL (3.9-5) L 02/05/19 04:55 1.1 % 02/05/19 04:55 PTH Intact 132.5 pg/mL (15-65) H 02/05/19 04:55 Straw (Yellow) 02/04/19 16:43 Clear (Clear) 02/04/19 16:43 6.0 (5.0-7.0) 02/04/19 16:43 Ur Specific [place] 1.011 (1.003-1.030) 02/04/19 16:43 100 mg/dl mg/dL (Negative) 02/04/19 16:43 Neg mg/dL (Negative) 02/04/19 16:43 Neg mg/dL (Negative) 02/04/19 16:43 Neg (Negative) 02/04/19 16:43 Neg (Negative) 02/04/19 16:43 Neg (Negative) 02/04/19 16:43 < 2.0 mg/dL (<2.0) 02/04/19 16:43 Ur Leukocyte Esterase Neg (Negative) 02/04/19 16:43 < 1.0 /HPF (0.0-6.0) 02/04/19 16:43 < 1.0 /HPF (0.0-6.0) 02/04/19 16:43 Few /HPF 02/04/19 16:43 None seen (None Seen) 02/04/19 17:52 129.8 mg/dL (0.1-20.0) H 02/04/19 18:02 73 mmol/L 02/04/19 18:02 Hepatitis A IgM Ab Non-reactive (NonReactive) 02/05/19 04:55 Hep Bs Antigen Non-reactive (Negative) 02/05/19 04:55 Hep B Core IgM Ab Non-reactive (NonReactive) 02/05/19 04:55 Non-reactive (NonReactive) 02/05/19 04:55 Active Medications - Current Medications Current Medications: Generic Name Dose Route Start Last Admin Trade Name Freq PRN Reason Stop Dose Admin Acetaminophen 650 mg 02/04/19 19:40 02/05/19 10:47 Tylenol PO 650 mg Q4H PRN Administration Pain MILD(1-3)/Fever >100.5/BRAUN Amlodipine Besylate 10 mg 02/04/19 18:00 02/07/19 10:32 Norvasc PO 10 mg QDAY BONY Administration Epoetin Justin 10,000 unit 02/06/19 08:39 02/06/19 13:35 Procrit SUB-Q 10,000 unit MIKE PRN Administration hemodialysis Famotidine 10 mg 02/04/19 22:00 02/07/19 10:32 Pepcid PO 10 mg DAILY BONY Administration Folic Acid 1 mg 02/05/19 16:00 02/07/19 10:32 Folvite PO 1 mg QDAY BONY Administration Heparin Sodium (Porcine) 5,000 unit 02/04/19 22:00 02/07/19 10:31 Heparin SUB-Q 5,000 unit Q12HR BONY Administration Hydralazine HCl 10 mg 02/04/19 19:36 Apresoline IV Q3H PRN Blood Pressure Sodium Chloride 1,000 mls @ 50 mls/hr 02/04/19 18:00 02/07/19 05:36 Nacl 0.45% 1000 Ml IV 50 mls/hr DIRECT BONY Administration Sodium Chloride 100 mls @ 999 mls/hr 02/05/19 10:34 Nacl 0.9% IV MIKE PRN Hypotension Sodium Chloride 100 mls @ 999 mls/hr 02/06/19 08:39 Nacl 0.9% IV MIKE PRN Hypotension Labetalol HCl 400 mg 02/07/19 22:00 Normodyne PO BID BONY Lorazepam 2 mg 02/05/19 09:25 Ativan IV Q1H PRN CIWA-Ar 8-15 Lorazepam 4 mg 02/05/19 09:25 Ativan IV Q1H PRN CIWA-Ar 16-25 Lorazepam 4 mg 02/05/19 09:25 Ativan IV Q15MIN PRN CIWA-Ar >25 Ondansetron HCl 4 mg 02/04/19 19:34 Zofran IV Q8H PRN Nausea And Vomiting Sodium Chloride 10 ml 02/04/19 22:00 02/07/19 10:32 Sodium Chloride Flush Syringe 10 Ml IV 10 ml BID BONY Administration Sodium Chloride 10 ml 02/04/19 19:34 Sodium Chloride Flush Syringe 10 Ml IV PRN PRN LINE FLUSH Thiamine HCl 100 mg 02/05/19 16:00 02/07/19 10:32 Vitamin B-1 PO 100 mg QDAY BONY Administration
[2019-02-08 08:47] LABS: Basophils # (Auto) 0.1 K/mm3 (0.0-0.1); Basophils % (Auto) 2.1 % (0.0-1.8); Eosinophils # (Auto) 0.3 K/mm3 (0.0-0.4); Eosinophils % (Auto) 6.8 % (0.0-4.3); Hematocrit 27.4 % (35.5-45.6); Hemoglobin 9.4 gm/dl (11.8-15.2); Lymphocytes # (Auto) 1.4 K/mm3 (1.2-5.4); Lymphocytes % (Auto) 32.5 % (13.4-35.0); Mean Corpuscular HGB Conc 34 % (32-34); Mean Corpuscular Volume 97 fl (84-94); Monocytes # (Auto) 0.5 K/mm3 (0.0-0.8); Monocytes % (Auto) 11.8 % (0.0-7.3); Platelet Count 314 K/mm3 (140-440); Red Blood Count 2.84 M/mm3 (3.65-5.03); Red Cell Distribution Width 14.2 % (13.2-15.2)
[2019-02-08 08:58] LABS: Calcium 9.1 mg/dL (8.4-10.2)
[2019-02-08] MEDS ORDERED: NACL 0.9% 100 ML IV PRN (10:08)
[2019-02-08] MEDS: PEPCID PO SCH (12:36)
[2019-02-08] MEDS: NORMODYNE PO SCH ×3 (12:37→21:58)
[2019-02-08] MEDS: NORVASC PO SCH ×2 (12:37→12:44)
[2019-02-08] MEDS: FOLVITE PO SCH (12:39)
[2019-02-08] MEDS: HEPARIN SUB-Q SCH ×2 (12:39→22:00)
[2019-02-08] MEDS: VITAMIN B-1 PO SCH (12:43)
--- NOTE | 2019-02-08 12:47 | Progress Note ---
Assessment and Plan 1. ESRD: Most likely CKD has progressed to ESRD. Patient presented with uremic symptoms. Renal US showed small kidneys. Renal prognosis is poor. Avoid nephrotoxic agents. Meds dosage based on GFR. Patient was started on hemodialysis due to ESRD and uremic symptoms. Hemodialysis: 02/05, 02/06, today. 2. FEN: Monitor lytes. 3. Anemia: Epogen. 4. HTN: BP is better. 5. Alcohol abuse. 6. Tobacco smoking: Counseled. Await outpatient HD chair. Subjective Date of service: 02/08/19 Interval history: Patient was seen and examined at the bedside. Doing ok. Objective - Vital Signs Vital signs: Vital Signs - 12hr 02/08/19 02/08/19 05:10 12:44 Temperature 98.6 F Pulse Rate 94 H 98 H Respiratory 16 Rate Blood Pressure 141/95 143/101 O2 Sat by Pulse 99 Oximetry - General Appearance General appearance: well-developed, well-nourished, appears stated age, other (no distress, R IJ tunnel catheter) EENT: ATNC, PERRL, mucous membranes moist, hearing intact, vision intact Neck: supple Respiratory: Present: Clear to Ascultation Cardiology: regular, S1S2, no murmurs Gastrointestinal: normoactive bowel sounds, no tenderness, no distended Integumentary: no rash, warm and dry Neurologic: no focal deficit, no asterixis, alert and oriented x3 Musculoskeletal: other (no edema) Psychiatric: cooperative - Lab 02/08/19 07:49 02/08/19 07:49 Most recent lab results Calcium 9.1 mg/dL (8.4-10.2) 02/08/19 07:49 Phosphorus 4.50 mg/dL (2.5-4.5) 02/05/19 04:55 129.8 mg/dL (0.1-20.0) H 02/04/19 18:02 73 mmol/L 02/04/19 18:02 Medications & Allergies - Medications Allergies/Adverse Reactions: Allergies bee venom protein (honey bee) Allergy (Verified 02/04/19 14:01) Swelling Home Medications: Home Medications Medication Instructions Recorded Confirmed Last Taken Type Furosemide [Lasix] 20 mg PO DAILY 02/04/19 02/04/19 Unknown History Olmesartan (Nf) [Benicar (Nf)] 20 mg PO DAILY 02/04/19 02/04/19 Unknown History amLODIPine [Norvasc] 5 mg PO DAILY 02/04/19 02/04/19 Unknown History Active Medications: Generic Name Dose Route Start Last Admin Trade Name Freq PRN Reason Stop Dose Admin Acetaminophen 650 mg 02/04/19 19:40 02/05/19 10:47 Tylenol PO 650 mg Q4H PRN Administration Pain MILD(1-3)/Fever >100.5/BRAUN Amlodipine Besylate 10 mg 02/04/19 18:00 02/08/19 12:44 Norvasc PO Not Given QDAY BONY Epoetin [place] 10,000 unit 02/06/19 08:39 02/06/19 13:35 Procrit SUB-Q 10,000 unit MIKE PRN Administration hemodialysis Famotidine 10 mg 02/04/19 22:00 02/08/19 12:36 Pepcid PO 10 mg DAILY BONY Administration Folic Acid 1 mg 02/05/19 16:00 02/08/19 12:39 Folvite PO 1 mg QDAY BONY Administration Heparin Sodium (Porcine) 5,000 unit 02/04/19 22:00 02/08/19 12:39 Heparin SUB-Q Not Given Q12HR BONY Hydralazine HCl 10 mg 02/04/19 19:36 Apresoline IV Q3H PRN Blood Pressure Sodium Chloride 1,000 mls @ 50 mls/hr 02/04/19 18:00 02/07/19 23:08 Nacl 0.45% 1000 Ml IV 50 mls/hr DIRECT BONY Administration Sodium Chloride 100 mls @ 999 mls/hr 02/08/19 10:08 Nacl 0.9% IV MIKE PRN Hypotension Labetalol HCl 400 mg 02/07/19 22:00 02/08/19 12:44 Normodyne PO Not Given BID BONY Lorazepam 2 mg 02/05/19 09:25 Ativan IV Q1H PRN CIWA-Ar 8-15 Lorazepam 4 mg 02/05/19 09:25 Ativan IV Q1H PRN CIWA-Ar 16-25 Lorazepam 4 mg 02/05/19 09:25 Ativan IV Q15MIN PRN CIWA-Ar >25 Ondansetron HCl 4 mg 02/04/19 19:34 Zofran IV Q8H PRN Nausea And Vomiting Sodium Chloride 10 ml 02/04/19 22:00 02/07/19 22:58 Sodium Chloride Flush Syringe 10 Ml IV 10 ml BID BONY Administration Sodium Chloride 10 ml 02/04/19 19:34 Sodium Chloride Flush Syringe 10 Ml IV PRN PRN LINE FLUSH Thiamine HCl 100 mg 02/05/19 16:00 02/08/19 12:43 Vitamin B-1 PO Not Given QDAY BONY
--- NOTE | 2019-02-08 13:31 | Progress Note ---
Assessment and Plan Assessment and plan: Patient is a 34 yo man with a history of hypertension, tobacco and alcohol dependency who presents to [facility] ED for elevated Creatinine and confusion. Mother at bedside. Apparently patient tried to get and was unsteady on his feet. He is confused but speech is fluent. He drinks Vodka daily but confused on his last drink and how much he drinks. It appears he is in alcohol withdrawals. Acute renal failure, atn+vasomotor nephrology: hemodialysis started 02/05/19 then again 02/06/19 Acute metabolic encephalopathy, uremia + alcohol withdrawal Malignant hypertension with emergency: Patient started on labetalol 300 mg every 8 and amlodipine 10 mg daily, Hydralazine 10 mg IV given 2 in the Emergency Room, give prn Hydralazine 10 mg IV every 3 hours when necessary Alcohol withdrawals resolved Nicotine dependence: Nicotine patch for now Acute on chronic Anemia secondary to chronic kidney disease, Epogen if necessary: collow cbc closely Malnutrition: Dietitian consult requested Hyperglycemia,blood glucose is 172, Not a known diabetic, hemoglobin A1c normal, stop insulin and follow bmp/Bg closely DVT prophylaxis: Heparin 5000 every 12hrs and GI prophylaxis Disposition: continue inpatient care, await outpatient hemodialysis setup with chair time then d/c home. History Interval history: Patient was seen and examined. Follow-up on current diagnosis of ARF. No overnight events reported to me. Patient denies any chest pain, shortness breath, nausea/vomiting or severe headaches. Imaging, nursing note, chart, labs and old chart reviewed. Discussed with patient. Hospitalist Physical - Physical exam Narrative exam: Gen: ill appearing NAD, Awake, Alert, Orientated x 3, but confused and c onfabulation HEENT: NCAT, EOMI, PERRL, OP Clear Neck: supple, no adenopathy, no thyromegaly, no JVD CVS/Heart: RRR, normal S1S2, pulses present bilaterally Chest/Lungs: CTA B, Symmetrical chest expansion, good air entry bilaterally GI/Abdomen: soft, NTND, good bowel sounds, no guarding or rebound /Bladder: no suprapubic tenderness, no CVA or paraspinal tenderness Extermity/Skin: no c/c/e, no obvious rash MSK: FROM x 4 Neuro: CN 2-12 grossly intact, no new focal deficits, fine tremor Psych: calm, speaks on tangent, for example, I asked him how when his last drink and he said 5 days ago on friday or but he knows today is friday. - Constitutional Vitals: Temp Pulse Resp BP Pulse Ox 98.6 F 98 H 16 143/101 99 02/08/19 05:10 02/08/19 12:44 02/08/19 05:10 02/08/19 12:44 02/08/19 05:10 General appearance: Present: no acute distress Results - Labs CBC & Chem 7: 02/08/19 07:49 02/08/19 07:49 Labs: Laboratory Last Values WBC 4.3 K/mm3 (4.5-11.0) L 02/08/19 07:49 RBC 2.84 M/mm3 (3.65-5.03) L 02/08/19 07:49 Hgb 9.4 gm/dl (11.8-15.2) L 02/08/19 07:49 Hct 27.4 % (35.5-45.6) L 02/08/19 07:49 MCV 97 fl (84-94) H 02/08/19 07:49 MCH 33 pg (28-32) H 02/08/19 07:49 MCHC 34 % (32-34) 02/08/19 07:49 RDW 14.2 % (13.2-15.2) 02/08/19 07:49 Plt Count 314 K/mm3 (140-440) 02/08/19 07:49 Lymph % (Auto) 32.5 % (13.4-35.0) 02/08/19 07:49 [place] % (Auto) 11.8 % (0.0-7.3) H 02/08/19 07:49 Eos % (Auto) 6.8 % (0.0-4.3) H 02/08/19 07:49 Baso % (Auto) 2.1 % (0.0-1.8) H 02/08/19 07:49 Lymph # 1.4 K/mm3 (1.2-5.4) 02/08/19 07:49 [place] # 0.5 K/mm3 (0.0-0.8) 02/08/19 07:49 Eos # 0.3 K/mm3 (0.0-0.4) 02/08/19 07:49 Baso # 0.1 K/mm3 (0.0-0.1) 02/08/19 07:49 Seg Neutrophils % 46.8 % (40.0-70.0) 02/08/19 07:49 Seg Neutrophils # 2.0 K/mm3 (1.8-7.7) 02/08/19 07:49 Sodium 143 mmol/L (137-145) 02/08/19 07:49 Potassium 4.0 mmol/L (3.6-5.0) 02/08/19 07:49 Chloride 103.6 mmol/L (98-107) 02/08/19 07:49 Carbon Dioxide 27 mmol/L (22-30) 02/08/19 07:49 16 mmol/L 02/08/19 07:49 BUN 32 mg/dL (9-20) H 02/08/19 07:49 8.4 mg/dL (0.8-1.5) H 02/08/19 07:49 Estimated GFR 9 ml/min 02/08/19 07:49 4 % 02/08/19 07:49 Glucose 103 mg/dL (75-100) H 02/08/19 07:49 POC Glucose 158 (70-105) H 02/05/19 18:41 < 4.2 % (4-6) 02/04/19 Unknown Calcium 9.1 mg/dL (8.4-10.2) 02/08/19 07:49 Phosphorus 4.50 mg/dL (2.5-4.5) 02/05/19 04:55 0.20 mg/dL (0.1-1.2) 02/05/19 04:55 AST 11 units/L (5-40) 02/05/19 04:55 ALT 14 units/L (7-56) 02/05/19 04:55 37 units/L (35-129) 02/05/19 04:55 78 units/L (55-170) 02/05/19 04:55 6.6 g/dL (6.3-8.2) 02/05/19 04:55 3.5 g/dL (3.9-5) L 02/05/19 04:55 1.1 % 02/05/19 04:55 PTH Intact 132.5 pg/mL (15-65) H 02/05/19 04:55 Straw (Yellow) 02/04/19 16:43 Clear (Clear) 02/04/19 16:43 6.0 (5.0-7.0) 02/04/19 16:43 Ur Specific Ellis 1.011 (1.003-1.030) 02/04/19 16:43 100 mg/dl mg/dL (Negative) 02/04/19 16:43 Neg mg/dL (Negative) 02/04/19 16:43 Neg mg/dL (Negative) 02/04/19 16:43 Neg (Negative) 02/04/19 16:43 Neg (Negative) 02/04/19 16:43 Neg (Negative) 02/04/19 16:43 < 2.0 mg/dL (<2.0) 02/04/19 16:43 Ur Leukocyte Esterase Neg (Negative) 02/04/19 16:43 < 1.0 /HPF (0.0-6.0) 02/04/19 16:43 < 1.0 /HPF (0.0-6.0) 02/04/19 16:43 Few /HPF 02/04/19 16:43 None seen (None Seen) 02/04/19 17:52 129.8 mg/dL (0.1-20.0) H 02/04/19 18:02 73 mmol/L 02/04/19 18:02 Hepatitis A IgM Ab Non-reactive (NonReactive) 02/05/19 04:55 Hep Bs Antigen Non-reactive (Negative) 02/05/19 04:55 Hep B Core IgM Ab Non-reactive (NonReactive) 02/05/19 04:55 Non-reactive (NonReactive) 02/05/19 04:55 Active Medications - Current Medications Current Medications: Generic Name Dose Route Start Last Admin Trade Name Freq PRN Reason Stop Dose Admin Acetaminophen 650 mg 02/04/19 19:40 02/05/19 10:47 Tylenol PO 650 mg Q4H PRN Administration Pain MILD(1-3)/Fever >100.5/BRAUN Amlodipine Besylate 10 mg 02/04/19 18:00 02/08/19 12:44 Norvasc PO Not Given QDAY BONY Epoetin Justin 10,000 unit 02/06/19 08:39 07/20/19 13:35 Procrit SUB-Q 10,000 unit MIKE PRN Administration hemodialysis Famotidine 10 mg 02/04/19 22:00 02/08/19 12:36 Pepcid PO 10 mg DAILY BONY Administration Folic Acid 1 mg 02/05/19 16:00 02/08/19 12:39 Folvite PO 1 mg QDAY BONY Administration Heparin Sodium (Porcine) 5,000 unit 02/04/19 22:00 02/08/19 12:39 Heparin SUB-Q Not Given Q12HR [facility] Hydralazine HCl 10 mg 02/04/19 19:36 Apresoline IV Q3H PRN Blood Pressure Sodium Chloride 1,000 mls @ 50 mls/hr 02/04/19 18:00 02/07/19 23:08 Nacl 0.45% 1000 Ml IV 50 mls/hr DIRECT BONY Administration Sodium Chloride 100 mls @ 999 mls/hr 02/08/19 10:08 Nacl 0.9% IV MIKE PRN Hypotension Labetalol HCl 400 mg 02/07/19 22:00 02/08/19 12:44 Normodyne PO Not Given BID BONY Lorazepam 2 mg 02/05/19 09:25 Ativan IV Q1H PRN CIWA-Ar 8-15 Lorazepam 4 mg 02/05/19 09:25 Ativan IV Q1H PRN CIWA-Ar 16-25 Lorazepam 4 mg 02/05/19 09:25 Ativan IV Q15MIN PRN CIWA-Ar >25 Ondansetron HCl 4 mg 02/04/19 19:34 Zofran IV Q8H PRN Nausea And Vomiting Sodium Chloride 10 ml 02/04/19 22:00 02/07/19 22:58 Sodium Chloride Flush Syringe 10 Ml IV 10 ml BID BONY Administration Sodium Chloride 10 ml 02/04/19 19:34 Sodium Chloride Flush Syringe 10 Ml IV PRN PRN LINE FLUSH Thiamine HCl 100 mg 02/05/19 16:00 02/08/19 12:43 Vitamin B-1 PO Not Given QDAY [facility]
[2019-02-08] MEDS ORDERED: NACL 0.9 (PRIMING MACHINE ONLY DIALYSIS) MC ONE (15:14)
[2019-02-08] MEDS: SODIUM CHLORIDE FLUSH SYRINGE 10 ML IV SCH (22:05)
--- NOTE | 2019-02-09 09:11 | Progress Note ---
Assessment and Plan 1. ESRD: Most likely CKD has progressed to ESRD. Patient presented with uremic symptoms. Renal US showed small kidneys. Renal prognosis is poor. Avoid nephrotoxic agents. Meds dosage based on GFR. Patient was started on hemodialysis due to ESRD and uremic symptoms. Hemodialysis: 02/05, 02/06, 02/08. 2. FEN: Monitor lytes. 3. Anemia: Epogen. 4. HTN: BP is better. 5. Alcohol abuse. 6. Tobacco smoking: Counseled. Await outpatient HD chair. Subjective Date of service: 02/09/19 Interval history: Patient was seen and examined at the bedside. Doing ok. Objective - Vital Signs Vital signs: Vital Signs - 12hr 02/08/19 02/09/19 21:58 05:42 Temperature 98.0 F Pulse Rate 94 H 98 H Blood Pressure 142/94 132/91 O2 Sat by Pulse 100 Oximetry - General Appearance General appearance: well-developed, well-nourished, appears stated age, other (no distress, R IJ tunnel catheter) EENT: ATNC, PERRL, mucous membranes moist, hearing intact, vision intact Neck: supple Respiratory: Present: Clear to Ascultation Cardiology: regular, S1S2, no murmurs Gastrointestinal: normoactive bowel sounds, no tenderness, no distended Integumentary: no rash, warm and dry Neurologic: no focal deficit, no asterixis, alert and oriented x3 Musculoskeletal: other (no edema) Psychiatric: cooperative - Lab 02/08/19 07:49 02/08/19 07:49 Most recent lab results Calcium 9.1 mg/dL (8.4-10.2) 02/08/19 07:49 Phosphorus 4.50 mg/dL (2.5-4.5) 02/05/19 04:55 129.8 mg/dL (0.1-20.0) H 02/04/19 18:02 73 mmol/L 02/04/19 18:02 Medications & Allergies - Medications Allergies/Adverse Reactions: Allergies bee venom protein (honey bee) Allergy (Verified 02/04/19 14:01) Swelling Home Medications: Home Medications Medication Instructions Recorded Confirmed Last Taken Type Furosemide [Lasix] 20 mg PO DAILY 02/04/19 02/04/19 Unknown History Olmesartan (Nf) [Benicar (Nf)] 20 mg PO DAILY 02/04/19 02/04/19 Unknown History amLODIPine [Norvasc] 5 mg PO DAILY 02/04/19 02/04/19 Unknown History Active Medications: Generic Name Dose Route Start Last Admin Trade Name Freq PRN Reason Stop Dose Admin Acetaminophen 650 mg 02/04/19 19:40 02/05/19 10:47 Tylenol PO 650 mg Q4H PRN Administration Pain MILD(1-3)/Fever >100.5/BRAUN Amlodipine Besylate 10 mg 02/04/19 18:00 02/08/19 12:44 Norvasc PO Not Given QDAY BONY Epoetin Justin 10,000 unit 02/06/19 08:39 02/06/19 13:35 Procrit SUB-Q 10,000 unit MIKE PRN Administration hemodialysis Famotidine 10 mg 02/04/19 22:00 02/08/19 12:36 Pepcid PO 10 mg DAILY BONY Administration Folic Acid 1 mg 02/05/19 16:00 02/08/19 12:39 Folvite PO 1 mg QDAY BONY Administration Heparin Sodium (Porcine) 5,000 unit 02/04/19 22:00 02/08/19 22:00 Heparin SUB-Q Not Given Q12HR BONY Hydralazine HCl 10 mg 02/04/19 19:36 Apresoline IV Q3H PRN Blood Pressure Sodium Chloride 100 mls @ 999 mls/hr 02/08/19 10:08 Nacl 0.9% IV MIKE PRN Hypotension Labetalol HCl 400 mg 02/07/19 22:00 02/08/19 21:58 Normodyne PO 400 mg BID BONY Administration Lorazepam 2 mg 02/05/19 09:25 Ativan IV Q1H PRN CIWA-Ar 8-15 Lorazepam 4 mg 02/05/19 09:25 Ativan IV Q1H PRN CIWA-Ar 16-25 Lorazepam 4 mg 02/05/19 09:25 Ativan IV Q15MIN PRN CIWA-Ar >25 Ondansetron HCl 4 mg 02/04/19 19:34 Zofran IV Q8H PRN Nausea And Vomiting Sodium Chloride 10 ml 02/04/19 22:00 02/08/19 22:05 Sodium Chloride Flush Syringe 10 Ml IV 10 ml BID BONY Administration Sodium Chloride 10 ml 02/04/19 19:34 Sodium Chloride Flush Syringe 10 Ml IV PRN PRN LINE FLUSH Thiamine HCl 100 mg 02/05/19 16:00 02/08/19 12:43 Vitamin B-1 PO Not Given QDAY BONY
[2019-02-09] MEDS: PEPCID PO SCH (10:52)
[2019-02-09] MEDS: NORMODYNE PO SCH ×2 (10:53→21:34)
[2019-02-09] MEDS: HEPARIN SUB-Q SCH ×2 (10:54→21:34)
[2019-02-09] MEDS: FOLVITE PO SCH (10:56)
[2019-02-09] MEDS: NORVASC PO SCH (10:56)
[2019-02-09] MEDS: VITAMIN B-1 PO SCH (10:56)
[2019-02-09] MEDS: SODIUM CHLORIDE FLUSH SYRINGE 10 ML IV SCH ×2 (10:57→21:36)
--- NOTE | 2019-02-09 11:32 | Progress Note ---
Assessment and Plan Acute renal failure, atn+vasomotor nephrology: - hemodialysis started 02/05/19, nephrology following, waiting for outpatient ritesh T sat up Acute metabolic encephalopathy, due to uremia + alcohol withdrawal, mental status now appears to be baseline Malignant hypertension with emergency: - Blood pressure was 190/123 on admission - Patient started on labetalol 300 mg every 8 and amlodipine 10 mg daily, Hydralazine 10 mg IV given 2 in the Emergency Room, - give prn Hydralazine 10 mg IV every 3 hours when necessary to keep SBP less th an 160 Alcohol withdrawals resolved, status post CIWA protocol Nicotine dependence: Nicotine patch for now Acute on chronic Anemia secondary to chronic kidney disease, Epogen if necessary: follow cbc closely Malnutrition, mild: Likely from chronic alcohol abuse, Dietitian consult requested Hyperglycemia,blood glucose is 172, Not a known diabetic, hemoglobin A1c normal, stopped insulin and follow bmp/Bg closely DVT prophylaxis: Heparin 5000 every 12hrs and GI prophylaxis Disposition: continue inpatient care, await outpatient hemodialysis setup with chair time then d/c home. Brief History Patient is a 34 yo man with a history of hypertension, tobacco and alcohol dependency who presents to [facility] ED for elevated Creatinine and confusion. Mother was at bedside, Apparently patient tried to get and was unsteady on his feet. He also noted confused but speech was fluent. He drinks Vodka daily but unsure about the timing of his last drink and how much he drinks. Patient was admitted to the hospital for alcohol withdrawal/intoxication and acute renal failure Hospitalist Physical Gen: ill appearing NAD, Awake, Alert, Orientated x 3, but confused and confabulation HEENT: NCAT, EOMI, PERRL, OP Clear Neck: supple, no adenopathy, no thyromegaly, no JVD CVS/Heart: RRR, normal S1S2, pulses present bilaterally Chest/Lungs: CTA B, Symmetrical chest expansion, good air entry bilaterally GI/Abdomen: soft, NTND, good bowel sounds, no guarding or rebound /Bladder: no suprapubic tenderness, no CVA or paraspinal tenderness Extermity/Skin: no c/c/e, no obvious rash MSK: FROM x 4 Neuro: CN 2-12 grossly intact, no new focal deficits, fine tremor Psych: calm, speaks on tangent, for example, I asked him how when his last drink and he said 5 days ago on friday or but he knows today is friday. Subjective Date of service: 02/09/19 Interval history: Patient seen and examined. Medical records and medication list reviewed. No acute event overnight noted by the RN. Patient denies any chest pain or difficulty breathing. Patient is tolerating diet. Discussed plan of care at bedside with patient. Objective - Constitutional Vitals: Vital Signs - 12hr 02/09/19 05:42 Temperature 98.0 F Pulse Rate 98 H Blood Pressure 132/91 O2 Sat by Pulse 100 Oximetry - Labs CBC & Chem 7: 02/08/19 07:49 02/08/19 07:49
--- NOTE | 2019-02-10 10:37 | XRay Report ---
CHEST 2 VIEWS INDICATION / CLINICAL INFORMATION: R/O TB, dialysis set-up. COMPARISON: None available. FINDINGS: SUPPORT DEVICES: Right IJ central venous catheter in place with the tip in good position projecting o rupa the superior cavoatrial junction. HEART / MEDIASTINUM: No significant abnormality. LUNGS / PLEURA: No significant pulmonary or pleural abnormality. No pneumothorax. ADDITIONAL FINDINGS: No significant additional findings. IMPRESSION: 1. No acute findings. No radiographic evidence of pulmonary tuberculosis. Signer Name: Alexis Karimi MD Signed: 02/10/2019 10:32 AM Workstation Name: [id number]
--- NOTE | 2019-02-10 11:34 | Progress Note ---
Assessment and Plan 1. ESRD: Most likely CKD has progressed to ESRD. Patient presented with uremic symptoms. Renal US showed small kidneys. Renal prognosis is poor. Avoid nephrotoxic agents. Meds dosage based on GFR. Patient was started on hemodialysis due to ESRD and uremic symptoms. Hemodialysis: 02/05, 02/06, 02/08. Next HD tomorrow. 2. FEN: Monitor lytes. 3. Anemia: Epogen. 4. HTN: BP is better. 5. Alcohol abuse. 6. Tobacco smoking: Counseled. Await outpatient HD chair. At present we are trying to get a chair at [facility]. Subjective Date of service: 02/10/19 Interval history: Patient was seen and examined at the bedside. Doing ok. Objective - Vital Signs Vital signs: Vital Signs - 12hr 02/10/19 06:46 Temperature 97.4 F L Pulse Rate 93 H Respiratory 18 Rate Blood Pressure 138/94 O2 Sat by Pulse 100 Oximetry - General Appearance General appearance: well-developed, well-nourished, appears stated age, other (no distress, R IJ tunnel catheter) EENT: ATNC, PERRL, mucous membranes moist, hearing intact, vision intact Neck: supple Respiratory: Present: Clear to Ascultation Cardiology: regular, S1S2, no murmurs Gastrointestinal: normoactive bowel sounds, no tenderness, no distended Integumentary: no rash, warm and dry Neurologic: no focal deficit, no asterixis, alert and oriented x3 Musculoskeletal: other (no edema) Psychiatric: cooperative - Lab 02/08/19 07:49 02/08/19 07:49 Most recent lab results Calcium 9.1 mg/dL (8.4-10.2) 02/08/19 07:49 Phosphorus 4.50 mg/dL (2.5-4.5) 02/05/19 04:55 129.8 mg/dL (0.1-20.0) H 02/04/19 18:02 73 mmol/L 02/04/19 18:02 Medications & Allergies - Medications Allergies/Adverse Reactions: Allergies bee venom protein (honey bee) Allergy (Verified 02/04/19 14:01) Swelling Home Medications: Home Medications Medication Instructions Recorded Confirmed Last Taken Type Aspirin EC 81 mg PO QDAY #30 tablet. 02/10/19 Unknown Rx Folic Acid [Folvite] 1 mg PO QDAY #30 tablet 02/10/19 Unknown Rx Labetalol [Labetalol 200mg TAB] 400 mg PO BID #60 tablet 02/10/19 Unknown Rx Thiamine [Vitamin B-1] 100 mg PO QDAY #30 tablet 02/10/19 Unknown Rx amLODIPine [Norvasc] 10 mg PO QDAY #30 tablet 02/10/19 Unknown Rx Active Medications: Generic Name Dose Route Start Last Admin Trade Name Freq PRN Reason Stop Dose Admin Acetaminophen 650 mg 02/04/19 19:40 02/05/19 10:47 Tylenol PO 650 mg Q4H PRN Administration Pain MILD(1-3)/Fever >100.5/BRAUN Amlodipine Besylate 10 mg 02/04/19 18:00 02/09/19 10:56 Norvasc PO 10 mg QDAY BONY Administration Epoetin Justin 10,000 unit 02/06/19 08:39 02/06/19 13:35 Procrit SUB-Q 10,000 unit MIKE PRN Administration hemodialysis Famotidine 10 mg 02/04/19 22:00 02/09/19 10:52 Pepcid PO 10 mg DAILY BONY Administration Folic Acid 1 mg 02/05/19 16:00 02/09/19 10:56 Folvite PO 1 mg QDAY BONY Administration Heparin Sodium (Porcine) 5,000 unit 02/04/19 22:00 02/09/19 21:34 Heparin SUB-Q Not Given Q12HR BONY Hydralazine HCl 10 mg 02/04/19 19:36 Apresoline IV Q3H PRN Blood Pressure Sodium Chloride 100 mls @ 999 mls/hr 02/08/19 10:08 Nacl 0.9% IV MIKE PRN Hypotension Labetalol HCl 400 mg 02/07/19 22:00 02/09/19 21:34 Normodyne PO 400 mg BID BONY Administration Lorazepam 2 mg 02/05/19 09:25 Ativan IV Q1H PRN CIWA-Ar 8-15 Lorazepam 4 mg 02/05/19 09:25 Ativan IV Q1H PRN CIWA-Ar 16-25 Lorazepam 4 mg 02/05/19 09:25 Ativan IV Q15MIN PRN CIWA-Ar >25 Ondansetron HCl 4 mg 02/04/19 19:34 Zofran IV Q8H PRN Nausea And Vomiting Sodium Chloride 10 ml 02/04/19 22:00 02/09/19 21:36 Sodium Chloride Flush Syringe 10 Ml IV 10 ml BID BONY Administration Sodium Chloride 10 ml 02/04/19 19:34 Sodium Chloride Flush Syringe 10 Ml IV PRN PRN LINE FLUSH Thiamine HCl 100 mg 02/05/19 16:00 02/09/19 10:56 Vitamin B-1 PO 100 mg QDAY BONY Administration
[2019-02-10] MEDS: NORMODYNE PO SCH ×2 (11:55→22:21)
[2019-02-10] MEDS: VITAMIN B-1 PO SCH (11:56)
[2019-02-10] MEDS: NORVASC PO SCH (11:56)
[2019-02-10] MEDS: HEPARIN SUB-Q SCH ×2 (11:57→22:21)
[2019-02-10] MEDS: SODIUM CHLORIDE FLUSH SYRINGE 10 ML IV SCH ×2 (11:57→22:21)
[2019-02-10] MEDS: FOLVITE PO SCH (11:57)
[2019-02-10] MEDS: PEPCID PO SCH (11:57)
--- NOTE | 2019-02-10 12:04 | Discharge Summary ---
Providers - Providers Date of Admission: 02/04/19 16:20 Date of discharge: 02/11/19 Attending physician: OLE ALEX 02/04/19 16:09 Consult to Physician [CONS] Routine Comment: Consulting Provider: MAY OLIVEROS Physician Instructions: Reason For Exam: renal failure 02/05/19 10:33 Consult to Interventional Radiology [CONS] Routine Consulting Provider: AVINASH MILAN Reason For Exam: Tunnel hemodialysis catheter palcement. Place consult to:: DR. CASTANEDA Notified:: DR. MILAN Phone number called:: IN HOUSE Was contact made?: Yes If yes, spoke with:: DR. MILAN 02/07/19 14:18 Physical Therapy Evaluation and Treat [CONS] Routine Comment: Reason For Exam: gait evaluation/ambulatory dysfunction Primary care physician: RICARDO ESPARZA Hospitalization Condition: Fair Pertinent studies: Renal ultrasound Chest x-ray Hospital course: Patient is a 34 yo man with a history of hypertension, tobacco and alcohol dependency who presents to [facility] ED for elevated Creatinine and confusion. Mother was at bedside, Apparently patient tried to get and was unsteady on his feet. He also noted confused but speech was fluent. He drinks Vodka daily but unsure about the timing of his last drink and how much he drinks. Patient was admitted to the hospital for alcohol withdrawal/intoxication and acute renal failure Discharge diagnosis and management: Acute renal failure, atn+vasomotor nephrology: - hemodialysis started 02/05/19, nephrology following, waiting for outpatient ritesh T sat up Acute metabolic encephalopathy, due to uremia + alcohol withdrawal, mental status now appears to be baseline Malignant hypertension with emergency: - Blood pressure was 190/123 on admission - Patient started on labetalol 300 mg every 8 and amlodipine 10 mg daily, Hydralazine 10 mg IV given 2 in the Emergency Room, - give prn Hydralazine 10 mg IV every 3 hours when necessary to keep SBP less than 160 Alcohol withdrawals resolved, status post [facility] protocol Nicotine dependence: Nicotine patch for now Acute on chronic Anemia secondary to chronic kidney disease, Epogen if necessary: follow cbc closely Malnutrition, mild: Likely from chronic alcohol abuse, Dietitian consult requested Hyperglycemia,blood glucose is 172, Not a known diabetic, hemoglobin A1c normal, stopped insulin and follow bmp/Bg closely DVT prophylaxis: Heparin 5000 every 12hrs and GI prophylaxis Disposition: continue inpatient care, await outpatient hemodialysis setup with chair time then d/c home. Hospitalist Physical Gen: ill appearing NAD, Awake, Alert, Orientated x 3, but confused and confabulation HEENT: NCAT, EOMI, PERRL, OP Clear Neck: supple, no adenopathy, no thyromegaly, no JVD CVS/Heart: RRR, normal S1S2, pulses present bilaterally Chest/Lungs: CTA B, Symmetrical chest expansion, good air entry bilaterally GI/Abdomen: soft, NTND, good bowel sounds, no guarding or rebound /Bladder: no suprapubic tenderness, no CVA or paraspinal tenderness Extermity/Skin: no c/c/e, no obvious rash MSK: FROM x 4 Neuro: CN 2-12 grossly intact, no new focal deficits, fine tremor Psych: calm, speaks on tangent, for example, I asked him how when his last drink and he said 5 days ago on friday or but he knows today is friday. Disposition: [id number] HOME UND[facility] Time spent for discharge: 34 minutes Core Measure Documentation - Palliative Care Palliative Care/ Comfort Measures: Not Applicable - Core Measures Any of the following diagnoses?: none Exam - Constitutional Vitals: Temp Pulse Resp BP Pulse Ox 97.4 F L 93 H 18 138/94 100 02/10/19 06:46 02/10/19 11:56 02/10/19 06:46 02/10/19 11:56 02/10/19 06:46 Plan Activity: advance as tolerated Weight Bearing Status: Weight Bear as Tolerated Diet: renal Follow up with: RICARDO ESPARZA MD [Primary Care Provider] - 3-5 Days Prescriptions: Aspirin EC 81 mg PO QDAY #30 tablet. Folic Acid [Folvite] 1 mg PO QDAY #30 tablet Labetalol [Labetalol 200mg TAB] 400 mg PO BID #60 tablet amLODIPine [Norvasc] 10 mg PO QDAY #30 tablet Thiamine [Vitamin B-1] 100 mg PO QDAY #30 tablet
[2019-02-10] MEDS ORDERED: NACL 0.9% 100 ML IV PRN ×3 (17:24→17:48)
--- NOTE | 2019-02-11 09:35 | Progress Note ---
Assessment and Plan 1. ESRD: Most likely CKD has progressed to ESRD. Patient presented with uremic symptoms. Renal US showed small kidneys. Renal prognosis is poor. Avoid nephrotoxic agents. Meds dosage based on GFR. Patient was started on hemodialysis due to ESRD and uremic symptoms. Hemodialysis: 02/05, 02/06, 02/08, 02/11. Patient is scheduled to start HD at [facility] tomorrow. Patient wants to do PD eventually. 2. FEN: Monitor lytes. 3. Anemia: Epogen. 4. HTN: BP is better. 5. Alcohol abuse. 6. Tobacco smoking: Counseled. Subjective Date of service: 02/11/19 Interval history: Patient was seen and examined at the bedside while on hemodialysis. Doing ok. Objective - Vital Signs Vital signs: Vital Signs - 12hr 02/10/19 02/10/19 02/11/19 22:18 22:35 00:38 Temperature 98.5 F 97.6 F 97.8 F Pulse Rate 95 H 98 H 88 Respiratory 18 20 20 Rate Blood Pressure 151/105 155/106 128/85 O2 Sat by Pulse 100 100 97 Oximetry 02/11/19 04:30 Temperature 97.8 F Pulse Rate 89 Respiratory 18 Rate Blood Pressure 139/94 O2 Sat by Pulse 99 Oximetry - General Appearance General appearance: well-developed, well-nourished, appears stated age, other (no distress, R IJ tunnel catheter) EENT: ATNC, PERRL, mucous membranes moist, hearing intact, vision intact Neck: supple Respiratory: Present: Clear to Ascultation Cardiology: regular, S1S2, no murmurs Gastrointestinal: normoactive bowel sounds, no tenderness, no distended Integumentary: no rash, warm and dry Neurologic: no focal deficit, no asterixis, alert and oriented x3 Musculoskeletal: other Psychiatric: cooperative - Lab 02/08/19 07:49 02/08/19 07:49 Most recent lab results Calcium 9.1 mg/dL (8.4-10.2) 02/08/19 07:49 Phosphorus 4.50 mg/dL (2.5-4.5) 02/05/19 04:55 129.8 mg/dL (0.1-20.0) H 02/04/19 18:02 73 mmol/L 02/04/19 18:02 Medications & Allergies - Medications Allergies/Adverse Reactions: Allergies bee venom protein (honey bee) Allergy (Verified 02/04/19 14:01) Swelling Home Medications: Home Medications Medication Instructions Recorded Confirmed Last Taken Type Aspirin EC 81 mg PO QDAY #30 tablet. 02/10/19 Unknown Rx Folic Acid [Folvite] 1 mg PO QDAY #30 tablet 02/10/19 Unknown Rx Labetalol [Labetalol 200mg TAB] 400 mg PO BID #60 tablet 02/10/19 Unknown Rx Thiamine [Vitamin B-1] 100 mg PO QDAY #30 tablet 02/10/19 Unknown Rx amLODIPine [Norvasc] 10 mg PO QDAY #30 tablet 02/10/19 Unknown Rx Active Medications: Generic Name Dose Route Start Last Admin Trade Name Freq PRN Reason Stop Dose Admin Acetaminophen 650 mg 02/04/19 19:40 02/05/19 10:47 Tylenol PO 650 mg Q4H PRN Administration Pain MILD(1-3)/Fever >100.5/BRAUN Amlodipine Besylate 10 mg 02/04/19 18:00 02/10/19 11:56 Norvasc PO 10 mg QDAY BONY Administration Epoetin Justin 10,000 unit 02/06/19 08:39 02/06/19 13:35 Procrit SUB-Q 10,000 unit MIKE PRN Administration hemodialysis Famotidine 10 mg 02/04/19 22:00 02/10/19 11:57 Pepcid PO 10 mg DAILY BONY Administration Folic Acid 1 mg 02/05/19 16:00 02/10/19 11:57 Folvite PO 1 mg QDAY BONY Administration Heparin Sodium (Porcine) 5,000 unit 02/04/19 22:00 02/10/19 22:21 Heparin SUB-Q Not Given Q12HR [facility] Hydralazine HCl 10 mg 02/04/19 19:36 Apresoline IV Q3H PRN Blood Pressure Sodium Chloride 100 mls @ 999 mls/hr 02/10/19 17:38 Nacl 0.9% IV MIKE PRN Hypotension Labetalol HCl 400 mg 02/07/19 22:00 02/10/19 22:21 Normodyne PO 400 mg BID BONY Administration Lorazepam 2 mg 02/05/19 09:25 Ativan IV Q1H PRN CIWA-Ar 8-15 Lorazepam 4 mg 02/05/19 09:25 Ativan IV Q1H PRN CIWA-Ar 16-25 Lorazepam 4 mg 02/05/19 09:25 Ativan IV Q15MIN PRN CIWA-Ar >25 Ondansetron HCl 4 mg 02/04/19 19:34 Zofran IV Q8H PRN Nausea And Vomiting Sodium Chloride 10 ml 02/04/19 22:00 02/10/19 22:21 Sodium Chloride Flush Syringe 10 Ml IV 10 ml BID BONY Administration Sodium Chloride 10 ml 02/04/19 19:34 Sodium Chloride Flush Syringe 10 Ml IV PRN PRN LINE FLUSH Thiamine HCl 100 mg 02/05/19 16:00 02/10/19 11:56 Vitamin B-1 PO 100 mg QDAY BONY Administration
[2019-02-11] MEDS ORDERED: NACL 0.9% 100 ML IV PRN (09:50)
--- NOTE | 2019-02-11 10:27 | Progress Note ---
Assessment and Plan Acute renal failure, atn+vasomotor nephrology: - hemodialysis started 02/05/19, nephrology following, waiting for outpatient ritesh T sat up Acute metabolic encephalopathy, due to uremia + alcohol withdrawal, mental status now appears to be baseline Malignant hypertension with emergency: - Blood pressure was 190/123 on admission - Patient started on labetalol 300 mg every 8 and amlodipine 10 mg daily, Hydralazine 10 mg IV given 2 in the Emergency Room, - give prn Hydralazine 10 mg IV every 3 hours when necessary to keep SBP less th an 160 Alcohol withdrawals resolved, status post CIWA protocol Nicotine dependence: Nicotine patch for now Acute on chronic Anemia secondary to chronic kidney disease, Epogen if necessary: follow cbc closely Malnutrition, mild: Likely from chronic alcohol abuse, Dietitian consult requested Hyperglycemia,blood glucose is 172, Not a known diabetic, hemoglobin A1c normal, stopped insulin and follow bmp/Bg closely DVT prophylaxis: Heparin 5000 every 12hrs and GI prophylaxis Disposition: continue inpatient care, await outpatient hemodialysis setup with chair time then d/c home. Brief History Patient is a 34 yo man with a history of hypertension, tobacco and alcohol dependency who presents to [facility] ED for elevated Creatinine and confusion. Mother was at bedside, Apparently patient tried to get and was unsteady on his feet. He also noted confused but speech was fluent. He drinks Vodka daily but unsure about the timing of his last drink and how much he drinks. Patient was admitted to the hospital for alcohol withdrawal/intoxication and acute renal failure Hospitalist Physical Gen: ill appearing NAD, Awake, Alert, Orientated x 3, but confused and confabulation HEENT: NCAT, EOMI, PERRL, OP Clear Neck: supple, no adenopathy, no thyromegaly, no JVD CVS/Heart: RRR, normal S1S2, pulses present bilaterally Chest/Lungs: CTA B, Symmetrical chest expansion, good air entry bilaterally GI/Abdomen: soft, NTND, good bowel sounds, no guarding or rebound /Bladder: no suprapubic tenderness, no CVA or paraspinal tenderness Extermity/Skin: no c/c/e, no obvious rash MSK: FROM x 4 Neuro: CN 2-12 grossly intact, no new focal deficits, fine tremor Psych: calm, speaks on tangent, for example, I asked him how when his last drink and he said 5 days ago on friday or but he knows today is friday. Subjective Date of service: 02/10/19 Interval history: Patient seen and examined. Medical records and medication list reviewed. No acute event overnight noted by the RN. Patient denies any chest pain or difficulty breathing. Patient is tolerating diet. Discussed plan of care at bedside with patient. Objective - Constitutional Vitals: Vital Signs - 12hr 02/10/19 02/11/19 02/11/19 22:35 00:38 04:30 Temperature 97.6 F 97.8 F 97.8 F Pulse Rate 98 H 88 89 Respiratory 20 20 18 Rate Blood Pressure 155/106 128/85 139/94 O2 Sat by Pulse 100 97 99 Oximetry 02/11/19 02/11/19 02/11/19 09:05 09:10 09:15 Temperature 97.8 F Pulse Rate 86 86 86 Respiratory 18 Rate Blood Pressure 151/105 146/100 144/105 O2 Sat by Pulse Oximetry 02/11/19 02/11/19 09:30 09:45 Temperature Pulse Rate 85 86 Respiratory Rate Blood Pressure 156/108 147/109 O2 Sat by Pulse Oximetry - Labs CBC & Chem 7: 02/08/19 07:49 02/08/19 07:49
[2019-02-11] MEDS: PROCRIT SUB-Q PRN (11:26)
[2019-02-11] MEDS: PEPCID PO SCH (12:17)
[2019-02-11] MEDS: VITAMIN B-1 PO SCH (12:17)
[2019-02-11] MEDS: NORMODYNE PO SCH (12:17)
[2019-02-11] MEDS: FOLVITE PO SCH (12:17)
[2019-02-11] MEDS: NORVASC PO SCH (12:17)
[2019-02-11] MEDS: HEPARIN SUB-Q SCH (12:18)
[2019-02-11] MEDS: SODIUM CHLORIDE FLUSH SYRINGE 10 ML IV SCH (12:18)
[2019-02-11 13:22] VITALS: BP 138/100
[2019-02-11 19:39] LABS: Myeloperoxidase Antibody <1.0 AI (<1.0)
[2019-02-11] MEDS ORDERED: NACL 0.9 (PRIMING MACHINE ONLY DIALYSIS) MC ONE (19:40)
[2019-02-11 22:02] LABS: ANA Screen, IFA Negative (Negative)
== END 2019-02-11 14:17 | disposition home health service (06) | DRG 673 ==
LOC: ED 13:58 → 3A 16:20
PROVIDERS: ADMIT Internal Medicine; ATTEND Internal Medicine
PROC: 0JH63XZ Insertion of Tunneled Vascular Access Device into Chest Subcutaneous Tissue and Fascia, Percutaneous Approach (ICD-10-PCS; principal; 2019-02-05)
PROC: 5A1D70Z Performance of Urinary Filtration, Intermittent, Less than 6 Hours Per Day (ICD-10-PCS; 2019-02-05)
PROC: 02H633Z Insertion of Infusion Device into Right Atrium, Percutaneous Approach (ICD-10-PCS; 2019-02-05)
PROC: B244ZZZ Ultrasonography of Right Heart (ICD-10-PCS; 2019-02-05)
PROC: B2141ZZ Fluoroscopy of Right Heart using Low Osmolar Contrast (ICD-10-PCS; 2019-02-05)
PROC: B543ZZA Ultrasonography of Right Jugular Veins, Guidance (ICD-10-PCS; 2019-02-05)
PROC: 5A1D70Z Performance of Urinary Filtration, Intermittent, Less than 6 Hours Per Day (ICD-10-PCS; 2019-02-06)
PROC: 5A1D70Z Performance of Urinary Filtration, Intermittent, Less than 6 Hours Per Day (ICD-10-PCS; 2019-02-08)
PROC: 5A1D70Z Performance of Urinary Filtration, Intermittent, Less than 6 Hours Per Day (ICD-10-PCS; 2019-02-11)
DX: N17.0 Acute kidney failure with tubular necrosis (principal); G93.41 Metabolic encephalopathy; I16.1 Hypertensive emergency; E44.1 Mild protein-calorie malnutrition; I12.0 Hypertensive chronic kidney disease with stage 5 chronic kidney disease or end stage renal disease; F10.239 Alcohol dependence with withdrawal, unspecified; N18.6 End stage renal disease; R73.9 Hyperglycemia, unspecified; F17.210 Nicotine dependence, cigarettes, uncomplicated; D63.1 Anemia in chronic kidney disease; Z68.27 Body mass index [BMI] 27.0-27.9, adult; Z71.6 Tobacco abuse counseling; Z91.030 Bee allergy status; Z88.6 Allergy status to analgesic agent; Z79.899 Other long term (current) drug therapy; Z71.3 Dietary counseling and surveillance; Z82.49 Family history of ischemic heart disease and other diseases of the circulatory system
CPT/HCPCS: 36415; 36558; 71046; 76770; 76937; 77001; 80048; 80053; 80074; 81001; 82550; 82570; 82962; 83036; 83970; 84100; 84300; 85025; 86021; 86038; 86160; 89050; 96374; 96376; 99406; G0378; C1750; J0360; J0885; J1644; J2250; J3010; J7030; J7040

== ENCOUNTER 2019-05-11 06:10 | Day surgery (SDC) | payer BC ==
[~2019-05-11 06:10] MED LIST: ANCEF/STERILE WATER 2 GM/20 ML 2 GM/20 ML SYRINGE IV SCH; NACL 0.9% 1000 ML 1,000 ML IV SCH; VERSED IV NR
[2019-05-11] MEDS ORDERED: NACL BACTERIOSTATIC INFILTRATI ONE (06:39)
[2019-05-11] MEDS ORDERED: ceFAZolin 2 GM in NACL 0.9% 100 ML IV ONE (07:00)
[2019-05-11] MEDS ORDERED: MARCAINE-EPI 0.5%-1:200,000 INFILTRATI ONE ×2 (07:14→08:09)
[2019-05-11] MEDS ORDERED: XYLOCAINE 1% 20 mL ONE (07:14)
--- NOTE | 2019-05-11 07:25 | Anesthesia Consultation ---
Anesthesia Consult and Med Hx Date of service: 05/11/19 - Airway Anesthetic Teeth Evaluation: Good (some chipped teeth in the back) ROM Head & Neck: Adequate Mental/Hyoid Distance: Adequate Mallampati Class: Class II Intubation Access Assessment: Probably Good - Pre-Operative Health Status ASA Pre-Surgery Classification: ASA3 Proposed Anesthetic Plan: General - Pulmonary Hx Smoking: Yes (STARTED AGE 17-QUIT 02/05) Hx Asthma: No Hx Sleep Apnea: No - Cardiovascular System Hx Hypertension: Yes Hx Heart Attack/AMI: No - Central Nervous System Hx Back Pain: Yes Hx Psychiatric Problems: No - Endocrine Hx End Stage Renal Disease: Yes (last HD 05/10/19) - Other Systems Hx Alcohol Use: Yes (WINE- OCC.) Hx Substance Use: No Hx Cancer: No
--- NOTE | 2019-05-11 07:26 | Anesthesia Day of Surgery ---
Anesthesia Day of Surgery - Day of Surgery Patient Examined: Yes Patient H&P Reviewed: Yes Patient is NPO: Yes Beta Blockers: Yes
[2019-05-11] MEDS ORDERED: DIPRIVAN 10 MG/ML IV ONE (07:30)
[2019-05-11] MEDS ORDERED: ZEMURON IV ONE (07:30)
[2019-05-11] MEDS ORDERED: DILAUDID ONE (07:30)
[2019-05-11] MEDS ORDERED: XYLOCAINE MPF 2% ONE (07:30)
[2019-05-11] MEDS ORDERED: SUBLIMAZE IV PRN (07:32)
[2019-05-11 07:38] LABS: Albumin 4.4 g/dL (3.9-5); Calcium 9.2 mg/dL (8.4-10.2)
--- NOTE | 2019-05-11 07:39 | Short Stay Summary ---
Short Stay Documentation Date of service: 05/11/19 - History H&P: obtained from office - Allergies and Medications Current Medications: Allergies bee venom protein (honey bee) Allergy (Verified 02/04/19 14:01) Swelling Home Medications Medication Instructions Recorded Confirmed Last Taken Type Labetalol [Labetalol 200mg TAB] 400 mg PO BID #60 tablet 02/10/19 Unknown Rx amLODIPine [Norvasc] 10 mg PO QDAY #30 tablet 02/10/19 Unknown Rx Active Medications Fentanyl (Sublimaze) 50 mcg IV Q5MIN PRN PRN Reason: Pain , Severe (7-10) Stop: 05/11/19 22:00 Cefazolin Sodium (Ancef/Sterile Water 2 Gm/20 Ml) 2 gm in 20 mls @ 80 mls/hr IV PREOP BONY Stop: 05/11/19 23:59 Sodium Chloride (Nacl 0.9% 1000 Ml) 1,000 mls @ 42 mls/hr IV DIRECT BONY Midazolam HCl (Versed) 2 mg IV PREOP NR Stop: 05/11/19 20:00 - Physical exam General appearance: no acute distress Integumentary: no rash HEENT: Atraumatic Lungs: Normal air movement Gastrointestinal: normal, no tenderness, no distended Neurological: Normal speech - Brief post op/procedure progress note Date of procedure: 05/11/19 (dictation:[id number]) Pre-op diagnosis: ESRD Post-op diagnosis: same Procedure: Lap PD catheter placement IVF - 100cc EBL min Anesthesia: GETA Findings: normal intra-abdominal anatomy Surgeon: CHRIS MEADOWS Estimated blood loss: minimal Pathology: none Condition: stable - Hospital course Hospital course: uneventful - Disposition Condition at discharge: Stable Disposition: DC-01 TO HOME OR SELFCARE Short Stay Discharge Plan Diet: renal Wound: per your surgeon's advice Special Instructions: no heavy lifting Additional Instructions: Post Operative Instructions May sponge bathe tomorrow. Pat dry the wound or wounds. After surgery, start with a light diet. Consider having a liquid diet first. If you do well, you can advance to a regular diet as you feel comfortable. Apply an ice pack to the wound or wounds for 10-20 minutes at a time. Do this at least 4-5 times a day. You can do it more if he would like. Alternate the use of ibuprofen and Tylenol for the first 2 days. I want you to take these on a scheduled basis. Take 600 mg of ibuprofen every 6 hours. Take 500 mg of Tylenol every 6 hours. You should alternate these 2 medicines. In other words, beginning with the ibuprofen. After 3 hours, take the Tylenol. Keep alternating the 2 drugs every 3 hours. Do this on a scheduled basis for the first 2 days. After that, you can take them as needed. It is very important that you use the prescription pain medicine only for very severe pain. Do not take the prescription medicine before you try using the ibuprofen and Tylenol. Please call your dialysis center for follow-up and peritoneal dialysis teaching. We will call you in a couple of days to see how youre doing. If you have any questions or concerns, always feel free to call the clinic at any time. Follow up with: RICARDO ESPARZA MD [Primary Care Provider] - 7 Days Forms: Outpatient Surgery DC Inst. Prescriptions: HYDROcodone/APAP 5-325 [Assaria 5/325] 1 each PO Q6HR PRN #20 tablet PRN Reason: Pain , Severe (7-10)
[2019-05-11 07:44] LABS: Basophils # (Auto) 0.1 K/mm3 (0.0-0.1); Basophils % (Auto) 2.1 % (0.0-1.8); Eosinophils # (Auto) 0.2 K/mm3 (0.0-0.4); Eosinophils % (Auto) 4.4 % (0.0-4.3); Hematocrit 37.9 % (35.5-45.6); Hemoglobin 12.4 gm/dl (11.8-15.2); Lymphocytes # (Auto) 1.1 K/mm3 (1.2-5.4); Lymphocytes % (Auto) 26.6 % (13.4-35.0); Mean Corpuscular HGB Conc 33 % (32-34); Mean Corpuscular Volume 91 fl (84-94); Monocytes # (Auto) 0.4 K/mm3 (0.0-0.8); Monocytes % (Auto) 9.4 % (0.0-7.3); Platelet Count 201 K/mm3 (140-440); Red Blood Count 4.17 M/mm3 (3.65-5.03); Red Cell Distribution Width 16.5 % (13.2-15.2)
[2019-05-11] MEDS ORDERED: HEPARIN 10,000 UNITS/10 ML ONE (07:52)
[2019-05-11] MEDS ORDERED: XYLOCAINE 1% 20 mL INFILTRATI ONE (08:09)
[2019-05-11] MEDS ORDERED: HEPARIN 10,000 UNITS/10 ML IV ONE (08:25)
[2019-05-11] MEDS ORDERED: NACL 0.9% 1000 ML IR ONE (08:40)
[2019-05-11] MEDS ORDERED: ZOFRAN ONE (08:47)
[2019-05-11] MEDS ORDERED: BLOXIVERZ ONE (08:49)
[2019-05-11] MEDS ORDERED: ROBINUL ONE (08:49)
[2019-05-11] MEDS ORDERED: NORCO 5/325 PO PRN (09:08)
--- NOTE | 2019-05-11 09:41 | Operative Report ---
PREOPERATIVE DIAGNOSIS: End-stage renal disease. POSTOPERATIVE DIAGNOSIS: End-stage renal disease. PROCEDURE: Laparoscopic peritoneal dialysis catheter insertion. ATTENDING PHYSICIAN: Esme Peña MD ANESTHESIA: General. ESTIMATED BLOOD LOSS: Minimal. FLUIDS: 100 mL. FINDINGS: Normal intraabdominal anatomy. IMPLANTS: Peritoneal dialysis catheter 57 cm. COMPLICATIONS: None. DISPOSITION: Stable, transferred to Recovery Room. INDICATIONS: This is a 34-year-old male with a recent diagnosis of end-stage renal disease. He had done hemodialysis for a number of months and has decided to move forward with peritoneal dialysis. Procedure, risks and benefits were explained to the patient. Risks included but were not limited to infection, bleeding, pain, injury to surrounding structures, possible need for further procedures in the future. The patient understood and consented. OPERATIVE NOTE: The patient was brought to the operating room and placed on the table in supine position. After adequate general anesthesia was established, the patient was prepped and draped in usual sterile fashion. We began by marking out the planned catheter location we had previously in the preoperative area, marked any skin folds and the location of his belt line. Once all the markings were done, I then placed the Veress needle in left upper quadrant at Flores's point where I was able to insufflate in first attempt. We then replaced this with a 5 mm port. I inserted using the Optiview technique. We entered the peritoneal cavity safely. There was no injury to the underlying structures. We proceeded on with the case. Examination of the abdomen revealed no intra-abdominal abnormalities. The patient was placed in Trendelenburg position. Small opening was made in the skin transversely over the right rectus sheath. Based on the markings with the catheter, dissection was carried down to the anterior rectus sheath. Small incision was made transversely 8 mm port was inserted and then under direct vision, it was guided and inferiorly and then into the peritoneal cavity. PD catheter, which had previously been flushed with saline, was then inserted. Stylet was removed. Catheter was placed in the pelvis just below the bladder. It appeared to lay very well. We made sure that the distal cuff was pulled back just above the posterior rectus sheath and then the trocar was removed. Using a Bridget-Wigio tunneler, we created a tunnel from the exit site, attached tunneler to the catheter and then pulled back into position. It appeared to lay very well. We connected it to the cystoscopy tubing and began instilling 1 liter of fluid. Abdomen was desufflated. The fluid was running very nicely. At this point, we made sure we injected additional local into all the sites and then I closed the deep layer at the insertion site with 3-0 Vicryl sutures, closed the skin with 4-0 Monocryl subcuticular sutures. Once the one liter bag was empty, we then placed on the ground. The return was coming back very nicely. We continued for about 700 mL and then we stopped the flow leaving at about to 5300 mL in the abdomen. Thereafter, I injected about 20 mL of dilute heparinized saline to minimize any fibrin formation within the catheter. Rest of the attachments were placed. Catheter was closed and sealed. I removed the 5 mm port and closed that site with 4-0 Monocryl subcuticular stitches. Skin was cleaned and dried. The two skin sites were covered with Dermabond. I placed one stitch at the exit site of the catheter as the opening was slightly wide, 2 x 2 dressing was placed, covered with Tegaderm and then additional dressings were placed over the catheter itself. The patient tolerated the procedure well. There were no complications. All counts were correct at the end of the case. JOB# [id number] TORITO/DAPHNE
[2019-05-11 10:56] VITALS: BP 147/99
--- NOTE | 2019-05-11 11:09 | Post Anesthesia Evaluation ---
- Post Anesthesia Evaluation Patient Participated: Yes Airway Patent: Yes Stable Respiratory Function: Yes Nausea/Vomiting: No Temp > 96.8F: Yes Pain Manageable: Yes Adequeate Hydration: Yes Anesthesia Complications: No
== END 2019-05-11 10:25 | disposition home or self-care (01) ==
LOC: OR 06:10
PROVIDERS: ATTEND Surgery
DX: I12.0 Hypertensive chronic kidney disease with stage 5 chronic kidney disease or end stage renal disease (principal); N18.6 End stage renal disease; D64.9 Anemia, unspecified; K21.9 Gastro-esophageal reflux disease without esophagitis; F17.200 Nicotine dependence, unspecified, uncomplicated; Z91.030 Bee allergy status; Z79.899 Other long term (current) drug therapy; Z72.89 Other problems related to lifestyle; Z98.890 Other specified postprocedural states
CPT/HCPCS: 36415; 49324; 80053; 82803; 85025; C1750; J0690; J1170; J1644; J2405; J2704; J2710; J7030